=== PATIENT | female | born 1985 | race Hispanic/Latino ===

== ENCOUNTER 2025-03-06 22:08 | Emergency (ER) | payer OTHER, SELFPAY ==
[2025-03-06 22:14] VITALS: BP 133/70; BMI 18.2
[2025-03-06 22:54] LABS: % Basophils 0.3 % (0-2); % Immature Granulocytes 0.4 % (0-0.5); % Lymphocytes 8.3 % (20.5-51.1); % Monocytes 2.7 % (1.7-9.3); % Neutrophils 88.3 % (42.2-75.2); Absolute Lymphocytes 0.6 10^3/uL (1.2-3.4); Absolute Monocytes 0.2 10^3/uL (0.1-0.6); Absolute Neutrophils 6.9 10^3/uL (1.4-6.5); Hematocrit 35.6 % (37.0-47.0); Hemoglobin 11.5 g/dL (12.0-16.0); Mean Corp Hgb Conc. 32.3 g/dL (33.0-37.0); Mean Corpuscular Hgb 24.2 pg (27.0-31.0); Mean Corpuscular Volume 74.8 fL (81.0-99.0); Mean Platelet Volume 9.9 fL (7.4-10.4); Nucleated Red Blood Cells % 0 %; Platelet Count 345 10^3/uL (130-400); Red Blood Cell Count 4.76 10^6/uL (4.20-5.40); Red Cell Dist. Width 15.5 % (11.5-14.5); White Blood Cell Count 7.8 10^3/uL (4.8-10.8)
[2025-03-06 23:00] VITALS: BP 131/82
[2025-03-06 23:15] LABS: ALT (SGPT) 16 U/L (0-35); AST (SGOT) 32 U/L (14-36); Albumin 4.4 g/dl (3.5-5.0); Alkaline Phosphatase 84 U/L (38-126); Blood Urea Nitrogen 10 mg/dl (7-17); Carbon Dioxide 23 mmol/L (22-30); Chloride 107 mmol/L (98-107); Estimated Creatinine Clearance 104 ml/min; Glucose 124 mg/dl (70-99); Potassium 4.3 mmol/L (3.5-5.1); Sodium 142 mmol/L (135-145); Total Bilirubin 0.8 mg/dl (0.2-1.3); eGFR > 60.00
[2025-03-07] VITALS: BP 139/77
[2025-03-07 01:00] VITALS: BP 123/78
--- NOTE | 2025-03-07 01:02 | ED.GENMED ---
History of Present Illness
General
Chief Complaint: Vomiting Blood
Source: patient
Exam Limitations: none
Time Seen by Provider: 03/07/25 00:24
History of Present Illness
History of Present Illness:
pt is a 39 y/o F
from [facility]
booked at 10 am on 03/06
says she last used fentanyl at midnight on 03/06, uses 1.5 bundles daily as well as frequently uses cocaine
she snorts or ingests fentanyl, does not use IV
uses cocaine 'all day'
per the [facility] nursing staff, pt had uds + for cocaine, fentanyl and thc
she was vomiting at the [facility] and a few episodes may have had streaks of blood
pt did vomit for the ocean lifeg[employer] staff here who said it wa sa very small streak but otherwise yellowish looking
no abdominal pain
pt is c/o chest pain
she is yawning frequently, feels anxious, is shifty in the bed,
pt has no abdominal pain, urianry symptoms. fever
Past History
Past History
ED Past Medical History: Other (Sepsis)
ED Past Surgical History: Appendectomy
Social History
Drug: Marijuana, Cocaine and Narcotics
Personal: Single
Living: [facility]
Family History
Family History: Other
Review of Systems
Review of Systems
Allergies reviewed?: Yes
All Other Systems: Not applicable
Phy Exam
Physical Exam
Physical Exam:
GENERAL: sleeping, easily aroused, shifting around in the stretcher
EYE: pupils equal and reactive 3 mm, not pinpoint
NECK: Supple
ENT: o/p clr, mmm.
CARDIAC: Regular rate and rhythm . no appreciated murmur
LUNGS: Clear breath sounds bilaterally, no acute respiratory distress, no wheezes/rales/rhonchi
ABDOMEN: Soft, without focal tenderness, no r/g, no cvat, normal bowel sounds
NEUROLOGICAL: Alert and oriented, no focal neuro deficits
SKIN: Warm and dry, skin intact.
MUSCULOSKELETAL: No edema, well perfused. neg jose's sign
PSYCH: Normal and appropriate interaction.
Scores
COW Clinical Opiate Withdrawal Scale
Resting Pulse Rate: 80 or below
Sweating-over past 30min not from room temp or activity: No report of chills or flushing
Restlessness-observation during assessment: Frequent shifting or extraneous movements of legs/arms
Pupil Size: Pupils pinned or normal size for room light
Bone or Joint Aches: Not present
Runny Nose or Tearing-not accounted for by cold/allergies: Not present
GI Upset-over last 30min: Multiple episodes of diarrhea or vomiting
Tremor-observation of outstretched hands: No tremor
Yawning-observation during assessment: Yawning once or twice during assessment
Anxiety or Irritability: Patient reports increasing irritability or anxiousness
Gooseflesh Skin: Skin is smooth
Score: 10
Withdrawal Severity: Mild Withdrawal, consider starting Suboxone
Course
Orders/Labs/Results
Orders:
Orders
03/06/25 22:45
Complete Blood Count/With Diff Urgent
Comprehensive Metabolic Panel Urgent
HCG, Serum Qualitative Screen Urgent
Lipase Urgent
03/07/25 01:04
Add On- LAB Urgent
Tests Added?: hcg serum qualitative
Electrocardiogram (*1) Urgent
Reason for Study: Chest Pain
EKG- Treatment ONCE
0.9% Sodium Chloride 1000 ml [Nss] 1,000 ml IV BOLUS
Buprenorphine [Subutex] 4 mg SL NOW STA
03/07/25 01:05
Pantoprazole [Protonix IV] 40 mg IV NOW STA
03/07/25 01:06
Add On- LAB Urgent
Tests Added?: lipase
03/07/25 01:39
Sterile Water [Sterile Water For Injection] 10 ml .ROUTE .[facility]
03/07/25 02:41
Troponin I Urgent
03/07/25 03:45
Ondansetron Orally Disint [Zofran Odt (Orally Disintegrating)] 4 mg PO NOW STA
Abnormal Lab Results
03/06/25
22:45
Hgb 11.5 L g/dL
(12.0-16.0)
Hct 35.6 L %
(37.0-47.0)
MCV 74.8 L fL
(81.0-99.0)
MCH 24.2 L pg
(27.0-31.0)
MCHC 32.3 L g/dL
(33.0-37.0)
RDW 15.5 H %
(11.5-14.5)
Absolute Neuts (auto) 6.9 H 10^3/uL
(1.4-6.5)
Absolute Lymphs (auto) 0.6 L 10^3/uL
(1.2-3.4)
Neutrophils % 88.3 H %
(42.2-75.2)
Lymphocytes % 8.3 L %
(20.5-51.1)
Glucose 124 H mg/dl
(70-99)
03/06/25 22:45
03/06/25 22:45
Vital Signs
Initial and Last Documented VS:
Initial Vital Signs
Temp Pulse Resp BP Pulse Ox
36.5 C 68 14 133/70 98
03/06/25 22:14 03/06/25 22:14 03/06/25 22:14 03/06/25 22:14 03/06/25 22:14
Last Documented Vital Signs
Temp Pulse Resp BP Pulse Ox
36.5 C 69 18 135/79 100
03/06/25 22:14 03/07/25 03:45 03/06/25 23:45 03/07/25 03:01 03/07/25 00:00
MDM/Problems Addressed
Differential Diagnosis Includes:
withdrawal, christina stephens tear, GI bleeding, dehydration
MDM/Problems Addressed:
39-year-old female coming from [facility] after being incarcerated earlier this morning and now going through opiate withdrawal. Patient also uses cocaine daily. Her last use of fentanyl was probably about 12 or 13 hours ago she thinks. As they were
doing her intake I had ordered her medications patient started vomiting. I talked to the present staff who said that there was no documentation but that somebody noted verbally that she had some blood in the vomit and thus she was sent out here.
She has not had any witnessed episodes by us, she did have 1 witnessed episode by the guard that is with her now and said it was a small streak of blood and not voluminous
pt's COWS is 10
d/w ed attending
subutex given
controlled pt symptoms well
pt had complained of cp and in setting of cocaine abuse, i sent trop and ekg which were unremarkabe
her lungs clear, no murmu, no cough
pt received iv protonix and fluids, though doubt true signiicant GI bleed, normal BUN
wbc normal
on discharge given dose of zofran though pt says she feels better, to help her tolerate fluids
d/c to [facility]
*Critical Care Note
Total Time (30-74mins, 75-104mins- exclusive of procedures): Not Applicable
ED Attending Note
-
Portions of this chart may have been created with voice recognition software.� Occasional wrong word or��sound alike� substitutions may have occurred due to the inherent limitations of voice recognition software.
Discharge Plan
Departure
Patient Disposition: Detention
Date of Disposition: 03/07/25
Time of Disposition: 03:36
Discharge Problem:
Vomiting, Drug withdrawal
Instructions: Nausea and Vomiting, Adult (DC), Drug Withdrawal (DC)
Prescriptions:
No Action
ibuprofen 800 MG tablet
800 mg PO Q6HPRN PRN (Reason: PAIN OR TEMP>100.4 F) 0RF
sulfamethoxazole-trimethoprim 1 TABLET tablet
1 tab PO BID 0RF
Rx Instructions:
8 more days
docusate sodium 100 MG capsule
100 mg PO BID 0RF
oxycodone-acetaminophen 5 MG/325 MG tablet
2 tab PO Q4HPRN PRN (Reason: severe pain) Qty: 12 0RF
Referrals:
[facility] [Family Provider] -
Activity Restrictions/Additional Instructions:
THERE WAS NO SIGNFICNAT BLEEDING FOUND HERE
ROBERTO HAD UNREMARKABLE LABS
SHE WAS GIVNE PROTONIX AND SUBUTEX 4 MG
CONTINUE WITHDRAWAL PROTOCOL
SHE LIKELY HAD BLOOD IN HER VOMIT FROM WRETCHING
RETURN FOR ANY CONCERNS.
SHE IS MEDICALLY CLEARED FOR INCARCERATION
Interventions
Interventions:
*General Assessment Last Done: 03/07/25 00:15
*Neglect/Abuse Screening Last Done: 03/07/25 00:15
*ED- Fall Risk Assessment Last Done: 03/07/25 00:15
*ED COVID-19 Vaccine History Last Done: 03/07/25 00:15
*Nursing Disposition Last Done: 03/07/25 03:56
JI-Gafnci-Ogipvqchts Assessment Last Done: 03/06/25 22:24
ED- Cardiac Assessment Last Done: 03/06/25 22:24
ED- Pulmonary Assessment Last Done: 03/06/25 22:24
Discharge Date and Time
Discharge Date/Time: 03/07/25 04:01
Print Language: TURKMEN
[2025-03-07 01:39] LABS: HCG, Serum Qualitative Screen Negative
[2025-03-07] MEDS: NSS 1000 IV (01:41)
[2025-03-07] MEDS: SUBUTEX 4 MG SL (01:42)
[2025-03-07] MEDS: PROTONIX IV 40 MG IV (01:42)
[2025-03-07 01:57] LABS: Lipase 66 U/L (23-300)
[2025-03-07 02:00] VITALS: BP 125/66
[2025-03-07 03:01] VITALS: BP 135/79
[2025-03-07 03:34] LABS: Troponin I < 0.012 ng/ml
[2025-03-07] MEDS: ZOFRAN ODT (ORALLY DISINTEGRATING) 4 MG PO (03:47)
== END 2025-03-07 04:01 ==
LOC: EMR 22:08
PROVIDERS: Physician Assistant; Student in an Organized Health Care Education/Training Program; EMERGENCY PHYSICIAN Student in an Organized Health Care Education/Training Program
DX: K92.0 Hematemesis (principal); F19.239 Other psychoactive substance dependence with withdrawal, unspecified
CPT/HCPCS: 99283; 96374; 80053; 83690; 84484; 84703; 85025; 93005

== ENCOUNTER 2025-03-09 00:43 | Inpatient (IN) | payer OTHER, SELFPAY ==
[2025-03-08 20:57] VITALS: BMI 19.3
[2025-03-08 20:58] VITALS: BP 103/56
[2025-03-08 21:02] VITALS: BP 103/56
[2025-03-08 21:45] LABS: ALT (SGPT) 14 U/L (0-35); AST (SGOT) 23 U/L (14-36); Albumin 3.8 g/dl (3.5-5.0); Alkaline Phosphatase 86 U/L (38-126); Blood Urea Nitrogen 16 mg/dl (7-17); Calcium 8.9 mg/dl (8.4-10.2); Carbon Dioxide 26 mmol/L (22-30); Chloride 104 mmol/L (98-107); Estimated Creatinine Clearance 94 ml/min; Glucose 96 mg/dl (70-99); Potassium 3.6 mmol/L (3.5-5.1); Sodium 139 mmol/L (135-145); Total Bilirubin 0.4 mg/dl (0.2-1.3); Total Protein 6.5 g/dl (6.3-8.2); eGFR > 60.00
[2025-03-08] MEDS: ZOFRAN 4 MG IV (21:59)
[2025-03-08] MEDS: TORADOL 15 MG IV (21:59)
[2025-03-08 22:01] VITALS: BP 94/54
[2025-03-08 22:46] LABS: % Basophils 0.8 % (0-2); % Eosinophils 0.8 % (0-6); % Immature Granulocytes 0.5 % (0-0.5); % Lymphocytes 22.6 % (20.5-51.1); % Monocytes 7.4 % (1.7-9.3); % Neutrophils 67.9 % (42.2-75.2); Absolute Lymphocytes 0.8 10^3/uL (1.2-3.4); Absolute Monocytes 0.3 10^3/uL (0.1-0.6); Absolute Neutrophils 2.5 10^3/uL (1.4-6.5); Hematocrit 28.7 % (37.0-47.0); Hemoglobin 9.3 g/dL (12.0-16.0); Mean Corp Hgb Conc. 32.4 g/dL (33.0-37.0); Mean Corpuscular Hgb 24.6 pg (27.0-31.0); Mean Corpuscular Volume 75.9 fL (81.0-99.0); Mean Platelet Volume 9.8 fL (7.4-10.4); Nucleated Red Blood Cells % 0 %; Platelet Count 224 10^3/uL (130-400); Red Blood Cell Count 3.78 10^6/uL (4.20-5.40); Red Cell Dist. Width 15.8 % (11.5-14.5); White Blood Cell Count 3.7 10^3/uL (4.8-10.8)
[2025-03-08 23:00] VITALS: BP 102/63
[2025-03-08 23:12] LABS: Hematocrit 29.1 % (37.0-47.0); Hemoglobin 9.3 g/dL (12.0-16.0); Mean Corpuscular Hgb 24.7 pg (27.0-31.0); Mean Corpuscular Volume 77.4 fL (81.0-99.0); Mean Platelet Volume 10.1 fL (7.4-10.4); Platelet Count 217 10^3/uL (130-400); Red Blood Cell Count 3.76 10^6/uL (4.20-5.40); Red Cell Dist. Width 15.7 % (11.5-14.5)
--- NOTE | 2025-03-08 23:27 | ED.GENMED ---
History of Present Illness
General
Chief Complaint: Withdrawal Symptoms
Time Seen by Provider: 03/08/25 21:32
History of Present Illness
History of Present Illness:
39-year-old female presents for [facility] with detention guards for evaluation of polysubstance withdrawal. She was seen here nearly 48 hours ago for similar symptoms. She last used fentanyl at midnight on March 06, states she
uses 1-1/2 bundles daily as well as frequent cocaine use. Denies IV drug abuse. She was brought in initially due to frequent vomiting and hematemesis. Was treated in the ED 2 days ago for the symptoms, at that time labs were reassuring and she
was given PPIs. She returns today with continued hematemesis, states she has vomited at least 10 times with blood, also complaining of chest pain at this point. Denies alcohol use or known history of esophageal varices
Past History
Past History
ED Past Medical History: Other (Sepsis)
ED Past Surgical History: Appendectomy
Social History
Drug: Marijuana, Cocaine and Narcotics
Personal: Single
Living: detention
Family History
Family History: Other
Review of Systems
Review of Systems
Allergies reviewed?: Yes
All Other Systems: ROS reviewed and negative except as documented in HPI and ROS
Phy Exam
Physical Exam
Physical Exam:
GEN: Ill appearing, no acute distress, generally disheveled
HEENT: Oral mucosa moist, no scleral icterus, no palpable supraclavicular crepitus
Cardiac: Regular rate and rhythm, no murmurs
Lung: No respiratory distress, no tachypnea, lungs clear to auscultation
MSK: No gross deformity or injuries
Skin: Good color, no pallor or jaundice, no rashes
Neuro: AO x3, moves all extremities freely
Psych: Anxious and disheveled
Course
Orders/Labs/Results
Orders:
Orders
03/08/25 20:57
Electrocardiogram (*1) Urgent
Reason for Study: Fatigue / Weakness
EKG- Treatment ONCE
03/08/25 21:09
Comprehensive Metabolic Panel Urgent
03/08/25 21:45
Ketorolac [Toradol] 15 mg IV NOW STA
Ondansetron Injectable [Zofran] 4 mg IV NOW STA
03/08/25 21:46
CR Chest - 2 Views Urgent
Comment:
Reason For Exam: chest pain
03/08/25 22:08
Complete Blood Count/With Diff Urgent
03/08/25 23:00
Flush (0.9% Sodium Chloride) [Flush (Nss)] See Dose Instructions IV PER PROTOCOL
03/08/25 23:03
Complete Blood Count/No Diff Urgent
03/08/25 23:13
Pantoprazole [Protonix IV] 80 mg IV NOW STA
03/08/25 23:15
Pantoprazole 80 mg/100 ml Nss [Protonix] 80 mg in 100 ml IV Q10H
03/08/25 23:18
Buprenorphine [Subutex] 2 mg SL NOW STA
03/08/25 23:43
Type+Screen Urgent
Prothrombin Time Urgent
Abnormal Lab Results
03/08/25 03/08/25
22:08 23:03
WBC 3.7 L 10^3/uL 4.0 L 10^3/uL
(4.8-10.8) (4.8-10.8)
RBC 3.78 L 10^6/uL 3.76 L 10^6/uL
(4.20-5.40) (4.20-5.40)
Hgb 9.3 L g/dL 9.3 L g/dL
(12.0-16.0) (12.0-16.0)
Hct 28.7 L % 29.1 L %
(37.0-47.0) (37.0-47.0)
MCV 75.9 L fL 77.4 L fL
(81.0-99.0) (81.0-99.0)
MCH 24.6 L pg 24.7 L pg
(27.0-31.0) (27.0-31.0)
MCHC 32.4 L g/dL 32.0 L g/dL
(33.0-37.0) (33.0-37.0)
RDW 15.8 H % 15.7 H %
(11.5-14.5) (11.5-14.5)
Absolute Lymphs (auto) 0.8 L 10^3/uL
(1.2-3.4)
03/08/25 23:03
03/08/25 21:09
Vital Signs
Initial and Last Documented VS:
Initial Vital Signs
Temp Pulse Resp BP Pulse Ox
98.2 F 72 19 103/56 99
03/08/25 20:58 03/08/25 20:58 03/08/25 20:58 03/08/25 20:58 03/08/25 20:58
Last Documented Vital Signs
Temp Pulse Resp BP Pulse Ox
98.2 F 66 14 94/54 99
03/08/25 20:58 03/08/25 22:45 03/08/25 22:45 03/08/25 22:01 03/08/25 22:45
MDM/Problems Addressed
MDM/Problems Addressed:
39-year-old female presents with continued hematemesis and drug withdrawal symptoms. Most concerning that she has continued chest pain which is concerning for esophageal injury or Anne-Lima tear, there is no subcutaneous air seen on chest x-ray
to suggest an esophageal perforation, thus this may represent severe gastritis versus Anne-Lima tear. Given that her hemoglobin has dropped 2.5 g in 48 hours we will admit on a PPI drip for GI consultation and further management
*Critical Care Note
Total Time (30-74mins, 75-104mins- exclusive of procedures): Not Applicable
ED Attending Note
-
Portions of this chart may have been created with voice recognition software.� Occasional wrong word or��sound alike� substitutions may have occurred due to the inherent limitations of voice recognition software.
Discharge Plan
Departure
Patient Disposition: Admit
Date of Disposition: 03/08/25
Time of Disposition: 23:32
Admit to: Med/Surg
Presentation/result/management discussed w/ accepting MD/DO: Hospitalist
Discharge Problem:
Acute upper GI bleed, Multiple substance withdrawal
Prescriptions:
No Action
clonidine HCl 0.1 mg Tablet
0.1 mg PO BID
clonazepam 0.5 mg Tablet
0.5 mg PO HS
pantoprazole 20 mg Tablet,Delayed Release (Dr/Ec)
20 mg PO DAILY
buprenorphine HCl 2 mg Tablet, Sublingual
4 mg SUBLINGUAL DAILY
Referrals:
[facility] [Family Provider] -
Interventions
Interventions:
*Risk Screen - Suicide Last Done: 03/08/25 20:58
*General Assessment Last Done: 03/08/25 20:58
*Neglect/Abuse Screening Last Done: 03/08/25 20:58
*ED- Fall Risk Assessment Last Done: 03/08/25 20:58
ED- Neurological Assessment Last Done: 03/08/25 21:07
ED-Psychological Assessment Last Done: 03/08/25 21:07
Discharge Date and Time
Print Language: SPANISH
[2025-03-08] MEDS: PROTONIX IV 80 MG IV (23:28)
[2025-03-08] MEDS: SUBUTEX 2 MG SL (23:29)
[2025-03-08] MEDS: PROTONIX 100 IV (23:29)
[2025-03-09] VITALS (30 sets, daily range): BP systolic 96–128; BP diastolic 54–77; BMI 19.3; BMI 18.9
[2025-03-09 00:09] LABS: INR 1.02; PT 13.7 Sec (11.4-14.6)
--- NOTE | 2025-03-09 00:33 | HPS.HSE ---
Family Physician
-
Family Physician: Facility [facility]
Chief Complaint
-
N/V, Hematemesis
History of Present Illness
Patient is a 39y F with PMH significant for polysubstance abuse and congenital pyloric stenosis and cardiomyopathy who presents to ED complaining of opioid withdrawal symptoms. Patient reports regular use of fentanyl and cocaine - both inhaled -
last used was 03/06 in the evening. Patient was incarcerated at that time and has since been having symptoms of chills, shakes, nausea, vomiting, abdominal pain, etc. She was seen in the ED here early in the AM on 03/07 with similar symptoms.
Evaluation at that time was unremarkable and she was discharged to detention on withdrawal protocols. Patient reports continued N/V since that time. Hematemesis has increased - initially blood streaked emesis and now samir bloody emesis per patient.
She denies any prior h/o GI bleeding. No anticoagulants / antiplatelets.
In the ED her BP is on the lower side. Hgb is decreased 2g from prior visit here.
Medical History
Past Medical History
Past Medical History: Reports Other
Additional Past Medical History:
Polysubstance Abuse
Congenital Cardiomyopathy
Congenital Pyloric Stenosis
Past Surgical History: Reports Other
Additional Past Surgical History:
Pyloric Stenosis Repair x 2
x 4
Appendectomy
Social History
Tobacco: Non-smoker
Alcohol: None
Drug: Other (Fentanyl 1 1/2 - 2 bundles daily - inhaled. Cocaine daily - inhaled. Last use 03/06 PM.)
Living: [facility]
Family History
Family History: Not pertinent
Allergies / Home Medications
Allergies reflects when Allergies were last updated in [facility].
Home Medications with original date entered in [facility]
Allergy/Medication List:
Allergies
Allergy/AdvReac Type Severity Reaction Status Date / Time
No Known Allergies Allergy Verified 03/08/25 20:58
Home Medications
buprenorphine HCl 2 mg sublingual tablet 4 mg sublingual DAILY 03/08/25
clonazepam 0.5 mg tablet 0.5 mg PO HS 03/08/25
clonidine HCl 0.1 mg tablet 0.1 mg PO BID 03/08/25
pantoprazole 20 mg tablet,delayed release 20 mg PO DAILY 03/08/25
Review of Systems
-
History Source: Patient
A 12 point ROS was completed and negative except as noted: Yes
Constitutional: Reports Fatigue and Chills; Denies Fever
EENT: Denies Sore Throat
Respiratory: Denies Cough or Trouble Breathing
Cardiac: Reports Diaphoresis and Palpitations; Denies Chest Pain or Syncope
Abdomen/GI: Reports Abdominal Pain, Nausea, Vomiting and Diarrhea
: Denies Dysuria or Frequency
Musculoskeletal: Denies Joint Pain or Edema
Neurological: Reports Headache; Denies Dizzy
Psych: Denies Depression or Anxiety
Physical Exam
Vital Signs
Vital Signs
Temp Pulse Resp BP Pulse Ox
98.2 F 66 14 94/54 99
03/08/25 20:58 03/08/25 22:45 03/08/25 22:45 03/08/25 22:01 03/08/25 22:45
Physical Exam
General: Other (Ill-appearing 39y F in mild - moderate distress due to nausea / pain.)
HEENT: Other (Dry MM. Poor dentition. Neck supple.)
Respiratory: Clear; No Wheezes, Rales or Rhonchi
Cardiac: S1/S2 and Regular Rhythm; No Murmur
GI: Other (Abdomen is soft. Mildly / diffusely tender. Pos BS.)
Musculoskeletal: No Clubbing, No Cyanosis and No Edema
Neuro: AO x 3
Laboratory Results
-
03/08/25 23:03
03/08/25 21:09
Laboratory Results
PT 13.7 Sec (11.4-14.6) 03/08/25 23:43
INR 1.02 03/08/25 23:43
Total Bilirubin 0.4 mg/dl (0.2-1.3) 03/08/25 21:09
AST 23 U/L (14-36) 03/08/25 21:09
ALT 14 U/L (0-35) 03/08/25 21:09
Alkaline Phosphatase 86 U/L (38-126) 03/08/25 21:09
Impression/Plan
-
A/P: Patient is a 39y F with PMH significant for polysubstance abuse who presents to ED complaining of N/V and hematemesis x 2 days.
UGIB
Acute Blood Loss Anemia secondary to the above
Hypotension secondary to the above
- Admit to ICU for further evaluation and treatment.
- Continue PPI infusion.
- Follow H&H and transfuse if needed for decreased Hgb or persistent hypotension.
- IVF support.
- GI evaluation for additional recommendations / probable endoscopic examination.
- Antiemetics / supportive care.
Opioid Withdrawal Syndromes
- Active withdrawals with ongoing N/V, etc.
- Continue / resume opioid withdrawal protocol including buprenorphine, antiemetics, clonidine, etc.
- Follow for clinical improvement.
Congenital Pyloric Stenosis
- s/p repair x 2 in infancy. No recent issues.
Congenital Cardiomyopathy
- Follow for any chest pain, dyspnea, etc.
DVT Prophylaxis: SCDs
Code Status: Full
[2025-03-09] MEDS: NSS 1000 IV (00:41)
[2025-03-09] MEDS: LR 1000 IV ×2 (02:21→14:43)
[2025-03-09 02:42] LABS: Hematocrit 28.6 % (37.0-47.0); Hemoglobin 9.2 g/dL (12.0-16.0)
[2025-03-09 03:22] LABS: Alcohol None Detected
--- NOTE | 2025-03-09 05:36 | EDRN ---
Called report to Pari in ICU
[2025-03-09 06:06] LABS: Glucose - Point of Care 71 mg/dl (70-99)
[2025-03-09 06:45] LABS: Hematocrit 28.8 % (37.0-47.0); Hemoglobin 9.1 g/dL (12.0-16.0); Mean Corp Hgb Conc. 31.6 g/dL (33.0-37.0); Mean Corpuscular Hgb 24.5 pg (27.0-31.0); Mean Corpuscular Volume 77.4 fL (81.0-99.0); Mean Platelet Volume 10.1 fL (7.4-10.4); Platelet Count 188 10^3/uL (130-400); Red Blood Cell Count 3.72 10^6/uL (4.20-5.40); Red Cell Dist. Width 15.9 % (11.5-14.5); White Blood Cell Count 2.6 10^3/uL (4.8-10.8)
[2025-03-09 06:52] LABS: ALT (SGPT) 12 U/L (0-35); AST (SGOT) 16 U/L (14-36); Albumin 3.1 g/dl (3.5-5.0); Alkaline Phosphatase 69 U/L (38-126); Blood Urea Nitrogen 15 mg/dl (7-17); Calcium 8.2 mg/dl (8.4-10.2); Carbon Dioxide 27 mmol/L (22-30); Chloride 108 mmol/L (98-107); Direct Bilirubin 0.2 mg/dl (0.0-0.4); Estimated Creatinine Clearance 81 ml/min; Glucose 80 mg/dl (70-99); Potassium 3.4 mmol/L (3.5-5.1); Sodium 140 mmol/L (135-145); Total Bilirubin 0.4 mg/dl (0.2-1.3); Total Protein 5.6 g/dl (6.3-8.2); eGFR > 60.00
[2025-03-09 07:20] LABS: Amphetamines Negative (Negative); Barbiturates Negative (Negative); Benzodiazepines Positive (Negative); Buprenorphine Positive (Negative); Cocaine Positive (Negative); Marijuana Positive (Negative); Opiates Positive (Negative)
[2025-03-09 07:21] LABS: Methadone Negative (Negative); Methamphetamines Negative (Negative); Phencyclidine Negative (Negative); Tricyclic Antidepressants Negative (Negative)
--- NOTE | 2025-03-09 07:30 | PTCARENOTE ---
Pt rec'd from night at RN 07:15. Pt remains restless/anxious and again asking for food and drinks, reminded pt she needs to await GI MD assessment/recs. COWs assessment initially 15. Per Protocol, Subutex administered for withdrawal sx (pt is in
active w/d, last used evening of 03/06) see documentation. Post administration, pt reported relief of sx, COWs score 4. VSS with SR 60s on monitor, SpO2 100% on RA. Currently on Protonix drip and LR at 125ml/hr. Plan of care discussed. Medications and
assessment as per documented in worklist. 2 guards remain at bedside, pt is shackled with one leg to bed.
--- NOTE | 2025-03-09 07:34 | PTCARENOTE ---
Pt arrived to ICU room 3370 from ER at approx 0555, accompanied by 2 guards from [facility]. Pt is A/O x4, tearful and somewhat restless/anxious but cooperative with care. No c/o nausea. SR 60s on monitor. SpO2 100% on RA. Currently on Protonix drip and
LR at 125ml/hr. Physical assessment as documented in nursing shift assessment flowsheet. Admission database completed. Pt able to ambulate with standby assistance to bathroom (once unshackled from bed) and voided. AM labs, MRSA swab and urine sample
obtained/sent to lab. Pt repeatedly asking for food or drink, discussed plan of care with patient and that the GI provider would need to see her first and clear her for a diet before we can give her any food. Pt reluctantly verbalized understanding.
Call khan within reach, guards in room.
[2025-03-09 07:35] LABS: Fentanyl, Urine Positive (Negative)
[2025-03-09] MEDS: SUBUTEX 8 MG SL ×2 (07:35→12:09)
--- NOTE | 2025-03-09 07:35 | CON.GI ---
Consultation
-
Date/Time Consultation Requested: 03/09/2025
Date/Time Consultation Performed: 03/09/2025
Requesting Provider: Hospitalist
Performing Provider: Dr. Jason
Reason for Consultation: Hematemesis
Medical History
Chief Complaint / HPI
Chief Complaint: Hematemesis
History of Present Illness:
Meche is a 39-year-old female with significant polysubstance abuse with history of pyloric stenosis repair x 2 who presented to the emergency room with opiate withdrawal symptoms. Regular use of fentanyl and cocaine last used 5 1 in the evening.
Patient has been incarcerated and is now having withdrawal with chills shakes nausea vomiting abdominal pain. Was in the emergency room on 03/07/2025 with similar symptoms and was discharged with withdrawal protocols. She has had continued nausea
vomiting and now with initially blood-streaked emesis now samir bloody emesis. No prior GI bleeding. No anticoagulation or antiplatelets. She had a 2 g drop from her previous visit. In the emergency room her total bilirubin is 0.4, INR 1, ALT
14, hemoglobin this morning 9.1 and on admission 9.3 last night. On 06 March hemoglobin 11.5, platelets 188.
Patient was sent to the ICU. Her blood pressure 96/57, pulse of 61.
Patient's last episode of hematemesis was in intermediate nothing here in the emergency room or on the floor. She is hemodynamically stable. She is asking for food and is very hungry. She denies any nausea. Her last bowel movement she cannot remember.
Patient denies any history of GI bleed and has never had an endoscopy.
Past Medical History
Past Medical History: Other (Congenital pyloric stenosis status post repair x 2, some cardiomyopathy as listed but unclear, polysubstance abuse)
Past Surgical History: Appendectomy and
Social History
Tobacco: Non-Smoker
Alcohol: None
Drug: Cocaine and Other (Inhales fentanyl and cocaine last used on 03/06/2025)
Living: [facility]
Family History
Family History: Reviewed & Not Pertinent
Allergies / Home Medications
Allergy/AdvReac Type Severity Reaction Status Date / Time
No Known Allergies Allergy Verified 03/08/25 20:58
�Medication �Instructions �Recorded
buprenorphine HCl 2 mg sublingual 4 mg sublingual DAILY 03/08/25
tablet
clonazepam 0.5 mg tablet 0.5 mg PO HS 03/08/25
clonidine HCl 0.1 mg tablet 0.1 mg PO BID 03/08/25
pantoprazole 20 mg tablet,delayed 20 mg PO DAILY 03/08/25
release
Review of Systems
-
History Source: Patient
All other systems: A 12 pt ROS was Negative except as stated above in HPI
Vital Signs
Temp Pulse Resp BP Pulse Ox
98.8 F 61 11 96/57 100
03/09/25 07:21 03/09/25 07:00 03/09/25 07:00 03/09/25 07:00 03/09/25 07:00
Physical Exam
Exam
General: Other (Somewhat tearful but in no acute distress)
HEENT: Anicteric
Respiratory: Clear
Cardiac: S1/S2
GI: Soft, Non Distended and Tender (Mild, diffusely tender but soft)
Neuro: AO x 3
Results
WBC 2.6 10^3/uL (4.8-10.8) L 03/09/25 06:25
Hgb Cancelled 03/09/25 19:58
Hct Cancelled 03/09/25 19:58
MCV 77.4 fL (81.0-99.0) L 03/09/25 06:25
Plt Count 188 10^3/uL (130-400) 03/09/25 06:25
Absolute Neuts (auto) 2.5 10^3/uL (1.4-6.5) 03/08/25 22:08
PT 13.7 Sec (11.4-14.6) 03/08/25 23:43
INR 1.02 03/08/25 23:43
Sodium 140 mmol/L (135-145) 03/09/25 06:25
Potassium 3.4 mmol/L (3.5-5.1) L 03/09/25 06:25
Chloride 108 mmol/L (98-107) H 03/09/25 06:25
Carbon Dioxide 27 mmol/L (22-30) 03/09/25 06:25
BUN 15 mg/dl (7-17) 03/09/25 06:25
Creatinine 0.8 mg/dL (0.6-1.0) 03/09/25 06:25
Calcium 8.2 mg/dl (8.4-10.2) L 03/09/25 06:25
Total Bilirubin 0.4 mg/dl (0.2-1.3) 03/09/25 06:25
AST 16 U/L (14-36) 03/09/25 06:25
ALT 12 U/L (0-35) 03/09/25 06:25
Alkaline Phosphatase 69 U/L (38-126) 03/09/25 06:25
Diagnostic Image Results:
Chest x-ray shows no acute cardiopulmonary process on 03/08/2025
Prior GI Procedures: None
EGD:
Colonoscopy:
Assessment / Plan
-
Meche is a 39-year-old female with unfortunate active polysubstance abuse who has had withdrawal in the past who last used inhaled fentanyl and cocaine on 03/06/2025 now withdrawing in intermediate here with persistent nausea vomiting initially vomiting
streaks of blood then turned samir with a 2 g drop in hemoglobin from 2 days ago
# Samir hematemesis after withdrawal from polysubstance abuse
-- Patient had significant nausea retching vomiting that then turned bloody -highly likely Anne-Lima tear
-- Hemoglobins been stable since admission, vital signs are stable with no further nausea vomiting and no bowel movements
-- Okay for clear liquids, antiemetics
-- needs bowel regimen with likely opiate induced constipation - suppository and miralax
-- if no further bleeding by this afternoon ok to advance diet
- continue ppi gtt for now, then eventual BID x 1 month, then once daily
-- will hold off on EGD since likely stopped and highly likely anne lima
Data Reviewed
-
Radiology: Report Reviewed by me
Old Records: Reviewed
-
-
Thank you for consultation and allowing me to participate in the patient's care. Please call the control room supervisor GI physician during the after hours with any questions or concerns.
[2025-03-09] MEDS: TYLENOL 1000 MG PO ×2 (07:36→15:10)
[2025-03-09] MEDS: PROTONIX 100 IV ×2 (07:41→14:43)
--- NOTE | 2025-03-09 07:46 | W.PN.HOSP.TC ---
Today's Communication/Plan
-
Continue NPO until seen by GI.
Assessment / Plan
Assessment / Plan
Patient is a 39y F with PMH significant for polysubstance abuse who presents to ED complaining of N/V and hematemesis x 2 days.
BP 96/57
WBC 2.6
H/H 9.1/28.8
K 3.4
1. UGIB, with Acute Blood Loss Anemia secondary to the UGIB
complicated by Hypotension secondary
- keep to ICU for further evaluation and treatment.
- Continue PPI infusion.
- Follow H&H and transfuse if needed for decreased Hgb or persistent hypotension.
Keep H/H above 7/21
- IVF support.
Keep MAP above 65, current BP 96/57
- GI evaluation for additional recommendations / probable endoscopic examination.
- Antiemetics / supportive care.
2. Low WBC - unclear cause
Could be atypical stress reaction, but could also be from infectious source
- HIV screen
3. Borderline low K - 3.4
Likely from poor po intake
Replete today IV
Check daily until stabilized
4. Opioid Withdrawal Syndromes
Active withdrawals with ongoing N/V, etc.
- Continue / resume opioid withdrawal protocol including buprenorphine, antiemetics, clonidine, etc.
- Follow for clinical improvement.
5. Congenital Pyloric Stenosis
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
No recent issues.
6. Congenital Cardiomyopathy
Stable at this time
- Follow for any chest pain, dyspnea, etc.
DVT Prophylaxis: SCDs
Code Status: Full
Anticipated Discharge: > 48 hours
Subjective/Interval History
-
Date of Service: March 09, 2025
Complaints of hunger and thirst.
Objective Data
-
Labs:
Laboratory Results
03/08/25 03/08/25 03/08/25
21:09 22:08 23:03
WBC 3.7 L 4.0 L
Hgb 9.3 L 9.3 L
Hct 28.7 L 29.1 L
Plt Count 224 D 217
PT
INR
Sodium 139
Potassium 3.6
Chloride 104
Carbon Dioxide 26
BUN 16
Creatinine 0.7
Glucose 96
Calcium 8.9
Total Bilirubin 0.4
AST 23
ALT 14
Alkaline Phosphatase 86
03/08/25 03/09/25 03/09/25
23:43 02:36 06:25
WBC 2.6 L
Hgb 9.2 L 9.1 L
Hct 28.6 L 28.8 L
Plt Count 188
PT 13.7
INR 1.02
Sodium 140
Potassium 3.4 L
Chloride 108 H
Carbon Dioxide 27
BUN 15
Creatinine 0.8
Glucose 80
Calcium 8.2 L
Total Bilirubin 0.4
AST 16
ALT 12
Alkaline Phosphatase 69
03/09/25 03/09/25 03/09/25
07:58 12:00 13:58
WBC
Hgb Cancelled Pending Cancelled
Hct Cancelled Pending Cancelled
Plt Count
PT
INR
Sodium
Potassium
Chloride
Carbon Dioxide
BUN
Creatinine
Glucose
Calcium
Total Bilirubin
AST
ALT
Alkaline Phosphatase
03/09/25 03/09/25
18:00 19:58
WBC
Hgb Pending Cancelled
Hct Pending Cancelled
Plt Count
PT
INR
Sodium
Potassium
Chloride
Carbon Dioxide
BUN
Creatinine
Glucose
Calcium
Total Bilirubin
AST
ALT
Alkaline Phosphatase
Vital Signs:
Vital Signs
Temp Pulse Resp BP Pulse Ox
98.8 F 61 11 96/57 100
03/09/25 07:21 03/09/25 07:00 03/09/25 07:00 03/09/25 07:00 03/09/25 07:00
I&O
03/08/25 03/09/25 03/10/25
06:59 06:59 06:59
Intake Total 135 / 135
Output Total 400 / 400
Balance -400 / -265 135 / 135
Review of Systems
-
History Source: Patient
Abdomen/GI: Reports Other (hunger)
Physical Exam
-
Psych: Anxious
Data Reviewed
-
Labs: Labs Reviewed by me
--- NOTE | 2025-03-09 08:12 | CON.INTV ---
Addendum entered and electronically signed by Dean Virgen MD 03/09/25 17:19:
Update: Patient continues to do well. No GI symptoms at all today she remains stable. Will downgrade to telemetry. No additional recommendations at this time. Elevator Pilot/Pulmonary service will now sign off. Thank you for allowing us to be
involved in the care of this patient. Please reconsult if there are any additional questions/concerns, or if patient's respiratory status deteriorates.
Original Note:
Consultation
Consultation Request
Date/Time Consultation Requested: 03/09/2025157
Date/Time Consultation Performed: 03/09/2025807
Requesting Provider: Dr. Dempsey
Performing Provider: Dr. Virgen
Reason for Consultation: UGIB/Opiate withdrawal
Medical History
-
Chief Complaint: Nausea/vomiting + hematemesis
History of Present Illness:
39-year-old female non-smoker with a past medical history of polysubstance abuse, congenital pyloric stenosis and congenital cardiomyopathy who presented from residential with opiate withdrawal symptoms. Patient reports regular use of fentanyl and
cocaine via insufflation � last use in the evening of 03/06. She been having chills, shakes, nausea, vomiting and abdominal pain. She was here in the ER on the morning of 03/07 with similar symptoms, was discharged back to residential on withdrawal
protocols. Patient's nausea/vomiting persisted and she was vomiting blood. Since being here in the hospital currently, she has not had another episode of hematemesis. In the ER she was afebrile to 98.2 �F, pulse rate 72, respiratory rate 19, BP
103/56 and saturating 99% on room air. Labs pertinent for WBC 4, Hb 9.3, INR 1.02, alcohol level negative, and UDS positive for buprenorphine, fentanyl, opiates, benzodiazepines, cocaine and marijuana. CXR showed no acute cardiopulmonary process.
In the ER, she was given Subutex, Toradol, NS 0.9% x1 L, Zofran, and started on Protonix drip. She was admitted to the ICU for further care and window glass installer services consulted for additional management/recommendations.
When I saw the patient this morning, she appeared uncomfortable. Please officers x 2 at bedside. COWS score this morning was 15. BP 106 over 60s, heart rate 66 and she saturating 100% on room air. She endorses burning chest pain that she has had
for few days, starting when she started to detox from her fentanyl use. She currently denies SOB or blood seen in urine or stool.
PMHx: Polysubstance abuse, congenital cardiomyopathy, congenital pyloric stenosis
PSHx: Pyloric stenosis repair x 2, x 4, appendectomy
Past Medical History
Past Medical History: Other (Above as per HPI)
Past Surgical History: Other (Above as per HPI)
Social History
Tobacco: Non-smoker
Alcohol: None
Drug: Narcotics (Uses 1/2 - 2 bundles daily of fentanyl (insufflated), also uses cocaine daily -last use on 03/06)
Living: [facility]
Family History
Family History: Reviewed & Not Pertinent
Allergies / Home Medications
Allergies
Allergy/AdvReac Type Severity Reaction Status Date / Time
No Known Allergies Allergy Verified 03/08/25 20:58
Home Medications
�Medication �Instructions �Recorded �Confirmed �Last Taken �Type
buprenorphine HCl 2 mg sublingual 4 mg sublingual DAILY 03/08/25 03/08/25 Unknown History
tablet
clonazepam 0.5 mg tablet 0.5 mg PO HS 03/08/25 03/08/25 Unknown History
clonidine HCl 0.1 mg tablet 0.1 mg PO BID 03/08/25 03/08/25 Unknown History
pantoprazole 20 mg tablet,delayed 20 mg PO DAILY 03/08/25 03/08/25 Unknown History
release
Review of Systems
-
History Source: Patient
All other systems: Negative unless noted
Vitals / Labs / Diagnostic Testing
Vital Signs
Temp Pulse Resp BP Pulse Ox
98.8 F 61 11 96/57 100
03/09/25 07:21 03/09/25 07:00 03/09/25 07:00 03/09/25 07:00 03/09/25 07:00
Lab Data
03/09/25 19:58
03/09/25 06:25
Laboratory Results
03/08/25
23:43
PT 13.7
INR 1.02
Diagnostic Testing:
Physical Exam
-
HEENT: Normocephalic and Anicteric
Cardiovascular: S1/S2 and Peripheral Edema (negative)
Respiratory: Clear, Wheeze (negative), Rales (negative), Rhonchi (negative) and Accessory Resp Muscle Use (negative)
GI: Soft, Non Distended, Non Tender and Normal Bowel Sounds
Neurology: AO x 3 and Tremors (negative)
Skin: Warm and Dry
General: Respiratory Distress (negative), Fever (negative) and Other (Middle-age female, appears uncomfortable, in no acute distress)
Assessment
-
Assessment: 39-year-old female non-smoker with a past medical history of polysubstance abuse, congenital pyloric stenosis and congenital cardiomyopathy who presented from residential with opiate withdrawal symptoms. Patient reports regular use of
fentanyl and cocaine via insufflation � last use in the evening of 03/06. She been having chills, shakes, nausea, vomiting and abdominal pain. She was here in the ER on the morning of 03/07 with similar symptoms, was discharged back to residential on
withdrawal protocols. Patient's nausea/vomiting persisted and she was vomiting blood. Since being here in the hospital currently, she has not had another episode of hematemesis. In the ER she was afebrile to 98.2 �F, pulse rate 72, respiratory
rate 19, BP 103/56 and saturating 99% on room air. Labs pertinent for WBC 4, Hb 9.3, INR 1.02, alcohol level negative, and UDS positive for buprenorphine, fentanyl, opiates, benzodiazepines, cocaine and marijuana. CXR showed no acute
cardiopulmonary process. In the ER, she was given Subutex, Toradol, NS 0.9% x1 L, Zofran, and started on Protonix drip. She was admitted to the ICU for further care and window glass installer services consulted for additional management/recommendations.
Chronic conditions PACKAGING LINE ATTENDANT: Polysubstance abuse, congenital cardiomyopathy, congenital pyloric stenosis
Impression:
#Hematemesis likely due to Anne-Lima tear in the setting of nausea/vomiting
#Acute blood loss anemia due to above
#Hypotension
#Leukopenia
#Acute on chronic anemia (baseline Hb 11�11.5)
#Opioid withdrawal syndrome
#Congenital cardiomyopathy
#Congenital pyloric stenosis
Plan:
- Patient presented with opiate withdrawal symptoms and nausea/vomiting with hematemesis, likely due to a Anne-Lima tear
- No further episodes of UGIB seen since she arrived to the hospital
- Continue serial H&H and transfuse if needed to keep Hb>7g/dL; keep plt>50k
- Continue holding antiplatelets/anticoagulants for now
- Large bore IV x 1�2
- GI consulted - recs appreciated; defer diet to GI
- Antiemetics prn with bowel regimen to treat opioid induced constipation
- PPI gtt with eventual transition to intermittent dosing, per GI
- Continue with COWS
- Her UDS was positive for multiple substances including cocaine, marijuana, benzodiazepines (although is prescribed Klonopin), fentanyl, buprenorphine (prescribed Subutex) and opiates
- Continue with Subutex protocol in addition to prn Subutex, clonidine, tizanidine, Zofran and Compazine
- If she develops significant hypertension +/- tachycardia then may need to be started on Precedex drip given the withdrawal of xylazine + medetomidine
- Maintain MAP>65
- Continue with IVF with LR at 125 cc/hr
- Although WBC is low, she is nontoxic-appearing and afebrile
- Continue to monitor off antibiotics
- Trend WBC and monitor fever curve
- Replete electrolytes with K>4, Mg>2
- Maintain euglycemia with goal BG 140-180
- Maintain SpO2 >90-94% (currently on room air breathing comfortably)
- prn nebulized bronchodilators - not currently bronchospastic
- Incentive spirometer encouraged 10x per hour for at least 4 hrs a day
- DVT ppx: SCDs for now
If patient is stable and does not need Precedex drip by later this evening, will downgrade to IMU level of care. Once she is transferred to IMU, then Elevator Pilot/Pulmonary services will sign off.
Total time spent today was 78 minutes for this encounter. Time includes reviewing laboratory test/imaging results, reviewing pertinent medical records, obtaining and reviewing medical history, performing an appropriate exam, ordering medications,
tests and procedures. Time also includes documentation of this encounter, coordinating patient care and communicating with other healthcare professionals. Total time does not include separately billed tests performed on this date of service.
--- NOTE | 2025-03-09 10:15 | CM ---
Received consult for opioid withdraw risk. Will communicate with [facility] to update about patient's plan of care .
[2025-03-09] MEDS: DULCOLAX 10 MG RECTAL (10:23)
[2025-03-09] MEDS: MIRALAX 17 GRAMS PO (10:24)
[2025-03-09] MEDS: KCL 260 MEQ IV (10:25)
[2025-03-09] MEDS: ZANAFLEX 2 MG PO ×2 (11:22→17:43)
--- NOTE | 2025-03-09 12:00 | PTCARENOTE ---
Pt tolerating clear liquids, no nausea, vomiting, or abd pain. She is again anxious and tearful, COWs assessment performed Q4 per protocol. 12:00 score 16...medicated pt with Subutex dose 2 of 2. Pt informed that she will not recieve futher doses of
subutex today but there are other PRN medications available to treat withdrawal -related sx. Pt verbalized concern about withdrawing from subutex, so education was provided regarding tapering method of medication administration in controlled setting
of hospital. Pt verbalized understanding. Pt with no BM for many days due to opiod induced constipation, Dulcolax supp and Miralax administered per orders from Dr. Jason. Pt is cleared by Dr. Lux to ambulate to and from bathroom with standby
assistance. Pt voiding appropriately. Oral care and juan pablo care done independently in bathroom. Pt anxious to eat solid food, Dr. Jason advanced diet to low residue. Pt with voracious appetite, no GI symptoms. Plan discussed with care team. Possibly
downgrade later today. H+H drawn and sent, result 9.1 noted.
[2025-03-09 13:02] LABS: Hematocrit 28.9 % (37.0-47.0)
--- NOTE | 2025-03-09 17:29 | PTCARENOTE ---
Pt stable for downgrade to telemetry per [employer], will request 2N bed to accomodate guards.
[2025-03-09 18:25] LABS: Hematocrit 32.1 % (37.0-47.0)
[2025-03-09] MEDS: AMBIEN 5 MG PO (21:04)
--- NOTE | 2025-03-09 21:19 | PTCARENOTE ---
Received pt from previous shift. Pt is AAOx3, anxious, very tearful at times, emotional support provided. COWs protocol (see worklist). Pt on RA, lungs diminished. NSR on the monitor. Pt assisted to the BR x1, pt states she was dizzy, pt assisted
back to bed. PRN Ambien given (see MAR). CHG bath provided. SCDs in place. Two guards at bedside. Call khan in reach. Safe environment maintained.
[2025-03-10] VITALS (8 sets, daily range): BP systolic 115–146; BP diastolic 74–86
[2025-03-10] MEDS: TYLENOL 1000 MG PO ×3 (00:06→17:09)
[2025-03-10] MEDS: LR 1000 IV ×2 (00:06→09:05)
[2025-03-10] MEDS: ZANAFLEX 2 MG PO ×2 (00:06→17:09)
[2025-03-10 00:37] LABS: Hematocrit 30.2 % (37.0-47.0); Hemoglobin 9.6 g/dL (12.0-16.0)
--- NOTE | 2025-03-10 00:48 | PTCARENOTE ---
Pt transferred to 4W in a wheelchair, with two guards.
--- NOTE | 2025-03-10 01:05 | PTCARENOTE ---
pt transferred to [facility]. Pt able to stand and walk to bed. pt connected to LR fluids and protonix gtt. No c/o pain at time of transfer, tele pack placed. Pt appears comfortable in bed and able to make needs known, call khan within reach.
[2025-03-10] MEDS: PROTONIX 100 IV (02:31)
[2025-03-10] MEDS: ZOFRAN 4 MG IV (04:11)
[2025-03-10] MEDS: COMPAZINE 5 MG IV (05:21)
[2025-03-10 07:57] LABS: APTT 31.2 Sec (23.4-35.0)
[2025-03-10 08:00] LABS: Hematocrit 30.7 % (37.0-47.0); Hemoglobin 9.7 g/dL (12.0-16.0); Mean Corp Hgb Conc. 31.6 g/dL (33.0-37.0); Mean Corpuscular Hgb 24.3 pg (27.0-31.0); Mean Corpuscular Volume 76.8 fL (81.0-99.0); Mean Platelet Volume 10.6 fL (7.4-10.4); Platelet Count 208 10^3/uL (130-400); Red Cell Dist. Width 15.5 % (11.5-14.5); White Blood Cell Count 3.1 10^3/uL (4.8-10.8)
--- NOTE | 2025-03-10 08:07 | W.PN.HOSP.TC ---
Addendum entered and electronically signed by Ant Mcdaniel MD 03/10/25 15:57:
I saw and evaluated the patient. I reviewed the resident�s note and agree with findings and plan as documented in the resident�s note except for changes in my documentation
39-year-old female presented from the half-way with opiate withdrawal. She reports using fentanyl and cocaine last use was 03/06/2025. She was in the ER on 03 07 with symptoms symptoms and was discharged back to half-way on withdrawal protocol. She had a
lot of nausea and vomiting and vomited blood.
CVS: S1-S2 normal
Chest: CTA B/L
Abdomen: Soft, NT / Bowel sounds present
Extremities: No edema, normal pulses
TECHNOLOGY INTERN: Non focal exam
# Hematemesis
Acute blood loss anemia secondary to above
Possible Anne-Lima tear
Continue PPI twice daily for 1 month and then daily
GI consulted for possible endoscopic evaluation-deferring EGD at this time
Continue antiemetics
Diet advanced
# Opiate abuse with withdrawal symptoms
Urine drug screen was positive for opiates, fentanyl, cocaine, marijuana, benzo, buprenorphine (patient was prescribed buprenorphine and benzos)
Continue opiate withdrawal protocol SCORE COWS score.
Continue as needed Zanaflex, clonidine, Subutex
# Iron deficiency anemia-replace IV iron
# Hypokalemia-resolved
# Congenital pyloric stenosis with history of repair as an
# Mental health cifwhegm-maschin-aamxpnvp Klonopin
# Congenital cardiomyopathy
# DVT prophylaxis-SCDs
# Full code
D/W RN
Part of this note was created using voice recognition system. Occasional wrong word or��sound alike� substitutions may have inadvertently occurred due to the inherent limitations of voice recognition software. If noted kindly bring it to my
attention for correction.
Hold discharge today
Original Note:
Today's Communication/Plan
-
- stop IVF
- change PPI to PO
- d/c
Assessment / Plan
Assessment / Plan
Assessment:
39yo F pmh polysubstance use w hx pyloric stenosis repair x2, congenital cardiomyopathy who presented to [facility] ED w opiate withdrawal sx. Was brought in a couple days prior for similar sx. Last used fentanyl midnight on March 06, uses 1.5 bundles daily.
Returned for continued hematemesis and CP.
Plan:
Upper GI bleed
Acute blood loss anemia secondary to upper GI bleed
- was in the ICU for HoTN
- follow H&H
- transfuse as needed
- tolerating diet well
- IVF support stopped
- PPI BID transitioned to PO
- GI input appreciated
- f/u outpt GI for possible endoscopy
Leukopenia
- unclear etiology
- HIV screen
Opioid w/d syndrome
- active w/d is slowing down
- opioid w/d protocol
- on 16mg subutex today
Hypokalemia
- repleted
Hypomagnesemia
- repleted
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
- no recent issues
Congential cardiomyopathy
- stable at this time
DVT Prophylaxis: SCDs
Diet: low residue
Code Status: Full code
Anticipated Discharge: Today
Subjective/Interval History
-
Date of Service: March 10, 2025
Overnight, pt downgraded to telemetry. COWS score 5. On subutex 16mg sublingual. Nauseous overnight. Ate marshallese toast for breakfast, tolerating well.
Objective Data
-
Labs:
Laboratory Results
03/10/25 03/10/25
00:12 07:27
WBC 3.1 L
Hgb 9.6 L 9.7 L
Hct 30.2 L 30.7 L
Plt Count 208
APTT 31.2
Sodium Pending
Potassium Pending
Chloride Pending
Carbon Dioxide Pending
BUN Pending
Creatinine Pending
Glucose Pending
Calcium Pending
Vital Signs:
Vital Signs
Temp Pulse Resp BP Pulse Ox
97.4 F 71 20 124/80 100
03/10/25 03:00 03/10/25 03:00 03/10/25 03:00 03/10/25 03:00 03/10/25 03:00
I&O
03/09/25 03/10/25 03/11/25
06:59 06:59 06:59
Intake Total 6459 / 6459
Output Total 400 / 400
Balance -400 / -265 6459 / 6459
Review of Systems
-
History Source: Patient
Constitutional: Reports Chills
Respiratory: Reports No Symptoms
Cardiac: Reports No Symptoms
Abdomen/GI: Reports Abdominal Pain
Musculoskeletal: Reports No Symptoms
Skin: Reports No Symptoms
Neuro: Reports No Symptoms
Physical Exam
-
General: Well Developed, Well Nourished and No Apparent Distress
HEENT: Normocephalic, Atraumatic and Moist Mucous Membranes
Respiratory: Clear to Auscultation and Non Labored Respirations
Cardiac: Regular Rhythm and S1/S2
GI: Soft, Nondistended, Normal Bowel Sounds and Tender (epigastric)
Musculoskeletal: No Clubbing, No Cyanosis and No Edema
Skin: Warm and Dry
Neuro: Awake, Alert, Oriented, No Motor Deficits and Nonfocal/Grossly Intact
Psych: Calm
[2025-03-10 08:15] LABS: Blood Urea Nitrogen 9 mg/dl (7-17); Calcium 8.5 mg/dl (8.4-10.2); Carbon Dioxide 28 mmol/L (22-30); Chloride 107 mmol/L (98-107); Estimated Creatinine Clearance 92 ml/min; Glucose 86 mg/dl (70-99); Magnesium 1.8 mg/dl (1.6-2.3); Phosphorus 4.2 mg/dl (2.5-4.5); Potassium 4.1 mmol/L (3.5-5.1); Sodium 142 mmol/L (135-145); eGFR > 60.00
[2025-03-10] MEDS: MIRALAX 17 GRAMS PO (09:05)
[2025-03-10] MEDS: SUBUTEX 16 MG SL (09:06)
[2025-03-10] MEDS: MAGNESIUM OXIDE 500 MG PO (09:06)
--- NOTE | 2025-03-10 10:04 | CM ---
Chart reviewed and casey saw operator met with patient this am, patient will return to [facility] when stable, 2 guards at bedside.
Plan; Patient to return to [facility] when stable.
[facility]
[phone]
[2025-03-10 10:07] LABS: Iron 36 ug/dl (37-170)
[2025-03-10 10:16] LABS: Percent Saturation 11 % (20-50); Total Iron Binding Capacity 324 ug/dl (265-497)
[2025-03-10 10:56] LABS: Vitamin B12 557 pg/ml (239-931)
[2025-03-10] MEDS: PROTONIX 40 MG PO ×2 (13:52→21:05)
--- NOTE | 2025-03-10 14:55 | W.DCSUMMARY ---
Discharge Summary
Discharge Data
Date of Admission: 03/09/25
Date of Discharge: 03/10/25
-
Pending Results: Yes
Additional Pending Results:
HIV Ag/Ab
Hospital Course
Ms. Meche Huggins is a 39yo F [facility] polysubstance use w hx pyloric stenosis repair x2, congenital cardiomyopathy who presented to [facility] ED w opiate withdrawal sx. Was brought in a couple days prior for similar sx. Last used fentanyl midnight on March 06,
uses 1.5 bundles daily. Returned for continued hematemesis and CP. Continued microdosing protocol from previous admission. Electrolyte abnormalities repleted. Leukopenic, HIV status pending. Pt should f/u outpt w GI for possible endoscopy.
Discharge Plan
-
Patient Disposition: Shelter
Discharge Diagnosis/Procedures: Presumed Anne-Lima tear
Condition: Good
Diet: Low Residue
Activity: No restrictions
Driving Restrictions: As prior to admission
Bathing Restrictions: None
Instructions: GI bleed - Discharge instructions
Referrals:
[facility] [Family Provider] -
Prescriptions:
New
buprenorphine HCl 8 mg tablet, sublingual
16 mg sublingual DAILY 30 Days Qty: 60 0RF
pantoprazole 40 mg Tablet,Delayed Release (Dr/Ec)
40 mg PO BID 30 Days Qty: 60 0RF
Continued
clonidine HCl 0.1 mg Tablet
0.1 mg PO BID
clonazepam 0.5 mg Tablet
0.5 mg PO HS
Discontinued
pantoprazole 20 mg Tablet,Delayed Release (Dr/Ec)
20 mg PO DAILY
buprenorphine HCl 2 mg Tablet, Sublingual
4 mg SUBLINGUAL DAILY
Discharge Date and Time
Print Language: K[place]IL[place]
[2025-03-10] MEDS: FERRLECIT 110 MG IV (17:10)
[2025-03-10] MEDS: AMBIEN 5 MG PO (21:05)
[2025-03-11] MEDS: TYLENOL 1000 MG PO ×3 (00:25→17:22)
[2025-03-11] MEDS: ZANAFLEX 2 MG PO ×3 (00:29→21:25)
[2025-03-11 03:00] VITALS: BP 127/77
[2025-03-11] MEDS: ZOFRAN 4 MG IV (04:17)
[2025-03-11] MEDS: SUBUTEX 4 MG SL (06:16)
[2025-03-11 07:00] VITALS: BP 130/83
[2025-03-11] MEDS: MIRALAX 17 GRAMS PO (08:29)
[2025-03-11] MEDS: PROTONIX 40 MG PO ×2 (08:29→21:25)
--- NOTE | 2025-03-11 08:38 | W.PN.HOSP.TC ---
Addendum entered and electronically signed by Ant Mcdaniel MD 03/11/25 14:20:
I saw and evaluated the patient. I reviewed the resident�s note and agree with findings and plan as documented in the resident�s note.
Patient was seen earlier today. Was doing well. Did not have any withdrawal symptoms. Received 4 mg of Suboxone earlier today. Will start 20 mg from tomorrow 03/12/2025.
Patient reported constipation mag citrate ordered
Can be discharged back to skilled nursing once patient has a bowel movement.
D/W RN
D/W Pharmacy
Original Note:
Today's Communication/Plan
-
- dc planning
Assessment / Plan
Assessment / Plan
Assessment:
39yo F h polysubstance use w hx pyloric stenosis repair x2, congenital cardiomyopathy who presented to [facility] ED w opiate withdrawal sx. Was brought in a couple days prior for similar sx. Last used fentanyl midnight on March 06, uses 1.5 bundles daily.
Returned for continued hematemesis and CP.
Plan:
Upper GI bleed
Acute blood loss anemia secondary to upper GI bleed
- was in the ICU for HoTN
- follow H&H
- transfuse as needed
- tolerating diet well
- IVF support stopped
- PPI BID transitioned to PO
- GI input appreciated
- f/u outpt GI for possible endoscopy
Leukopenia
- unclear etiology
- HIV screen
Opioid w/d syndrome
- active w/d is slowing down
- opioid w/d protocol
- on 20mg suboxone today
Hypokalemia
- repleted
Hypomagnesemia
- repleted
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
- no recent issues
Congential cardiomyopathy
- stable at this time
Anxiety
- cont home klonopin
DVT Prophylaxis: SCDs
Diet: low residue
Code Status: Full code
Anticipated Discharge: Today
Subjective/Interval History
-
Date of Service: March 11, 2025
No acute overnight events
Objective Data
-
Labs:
Laboratory Results
03/11/25
08:36
WBC Pending
Hgb Pending
Hct Pending
Plt Count Pending
Sodium Pending
Potassium Pending
Chloride Pending
Carbon Dioxide Pending
BUN Pending
Creatinine Pending
Glucose Pending
Calcium Pending
Total Bilirubin Pending
AST Pending
ALT Pending
Alkaline Phosphatase Pending
Vital Signs:
Vital Signs
Temp Pulse Resp BP Pulse Ox
97.9 F 70 20 130/83 98
03/11/25 07:00 03/11/25 07:00 03/11/25 07:00 03/11/25 07:00 03/11/25 07:00
I&O
03/10/25 03/11/25 03/12/25
06:59 06:59 06:59
Intake Total 6459 / 6459 1310 / 1310
Balance 6459 / 6459 1310 / 1310
Review of Systems
-
History Source: Patient
Constitutional: Reports No Symptoms
EENT: Reports No Symptoms Reported
Respiratory: Reports No Symptoms
Cardiac: Reports No Symptoms
Abdomen/GI: Reports Abdominal Pain
Musculoskeletal: Reports No Symptoms
Skin: Reports No Symptoms
Neuro: Reports No Symptoms
Physical Exam
-
General: Well Developed, Well Nourished and No Apparent Distress
HEENT: Normocephalic, Atraumatic and Moist Mucous Membranes
Respiratory: Clear to Auscultation and Non Labored Respirations
Cardiac: Regular Rhythm and S1/S2
GI: Soft, Nondistended, Normal Bowel Sounds and Tender (epigastric)
Musculoskeletal: No Clubbing, No Cyanosis and No Edema
Skin: Warm and Dry
Neuro: Awake, Alert, Oriented, No Motor Deficits and Nonfocal/Grossly Intact
Psych: Calm
[2025-03-11] MEDS: CATAPRES 0.1 MG PO ×2 (08:49→17:22)
[2025-03-11] MEDS: SUBUTEX 16 MG SL (09:39)
[2025-03-11 10:06] LABS: Hematocrit 33.7 % (37.0-47.0); Hemoglobin 10.5 g/dL (12.0-16.0); Mean Corp Hgb Conc. 31.2 g/dL (33.0-37.0); Mean Corpuscular Hgb 24.2 pg (27.0-31.0); Mean Corpuscular Volume 77.8 fL (81.0-99.0); Mean Platelet Volume 10.4 fL (7.4-10.4); Platelet Count 219 10^3/uL (130-400); Red Blood Cell Count 4.33 10^6/uL (4.20-5.40); Red Cell Dist. Width 15.4 % (11.5-14.5); White Blood Cell Count 4.5 10^3/uL (4.8-10.8)
--- NOTE | 2025-03-11 10:10 | CM ---
retail office manager reviewed patient's chart and met with patient this am, 2 guards are at bedside and plan is for patient to return to [facility] when stable.
[facility]
[phone]

Plan; Patient to return to [facility] when stable.
[2025-03-11 10:23] LABS: ALT (SGPT) 12 U/L (0-35); AST (SGOT) 18 U/L (14-36); Albumin 3.9 g/dl (3.5-5.0); Alkaline Phosphatase 90 U/L (38-126); Blood Urea Nitrogen 9 mg/dl (7-17); Calcium 8.8 mg/dl (8.4-10.2); Carbon Dioxide 28 mmol/L (22-30); Chloride 105 mmol/L (98-107); Estimated Creatinine Clearance 92 ml/min; Glucose 91 mg/dl (70-99); Potassium 4.2 mmol/L (3.5-5.1); Sodium 141 mmol/L (135-145); Total Bilirubin 0.3 mg/dl (0.2-1.3); Total Protein 6.6 g/dl (6.3-8.2); eGFR > 60.00
[2025-03-11 11:00] VITALS: BP 126/73
[2025-03-11] MEDS: CITROMA 300 ML PO (14:12)
[2025-03-11 14:35] LABS: HIV Combo Negative (Negative)
[2025-03-11 15:00] VITALS: BP 119/74
[2025-03-11 20:13] VITALS: BP 116/69
[2025-03-11] MEDS: AMBIEN 5 MG PO (21:25)
--- NOTE | 2025-03-11 21:51 | PTCARENOTE ---
Patient refusing enema overnight--does not want to disturb her sleep. Patient states that, due to her chronic fentanyl use, she has gone over a week without having a bowel movement.
[2025-03-11 23:17] VITALS: BP 109/64
[2025-03-12] MEDS: TYLENOL PO ×2 (00:31→23:12)
[2025-03-12 03:21] VITALS: BP 118/74
[2025-03-12] MEDS: ZANAFLEX 2 MG PO ×2 (03:22→18:06)
[2025-03-12] MEDS: CATAPRES 0.1 MG PO ×3 (05:52→20:48)
--- NOTE | 2025-03-12 05:59 | PTCARENOTE ---
AAO x 3. COWS=8, at beginning of shift. x 1 dose Zanaflex and Ambien administered. Morning COWS=6. x 1 dose clonidine administered. Patient states 'I am anxious'. VSS. NSR on telemetry. Forensics patient, with two guards in the room at all times.
OOB with stand by assistance. Bed in lowest position. Call khan and personal belongings within reach. Care Home updated via telephone.
[2025-03-12 07:00] VITALS: BP 105/63
[2025-03-12 08:06] LABS: Hemoglobin 11.2 g/dL (12.0-16.0); Mean Corp Hgb Conc. 30.3 g/dL (33.0-37.0); Mean Corpuscular Volume 79.4 fL (81.0-99.0); Mean Platelet Volume 10.2 fL (7.4-10.4); Platelet Count 199 10^3/uL (130-400); Red Blood Cell Count 4.66 10^6/uL (4.20-5.40); Red Cell Dist. Width 15.5 % (11.5-14.5); White Blood Cell Count 8.3 10^3/uL (4.8-10.8)
[2025-03-12] MEDS: PROTONIX 40 MG PO ×2 (08:09→20:48)
[2025-03-12] MEDS: TYLENOL 1000 MG PO ×2 (08:09→16:34)
[2025-03-12] MEDS: SUBUTEX 20 MG SL (08:09)
[2025-03-12] MEDS: MIRALAX 17 GRAMS PO (08:10)
--- NOTE | 2025-03-12 08:15 | W.PN.HOSP.TC ---
Addendum entered and electronically signed by Ant Mcdaniel MD 03/12/25 16:07:
CVS: S1-S2 normal
Chest: CTA B/L
Abdomen: Soft, NT , bowel sounds present
Abdomen x-ray nonobstructive bowel gas pattern. Small to moderate stool
Patient took magnesium citrate yesterday
Enema today with small bowel movement
Abd soft and NT
On Suboxone
D/W RN
Will discharge
Original Note:
Today's Communication/Plan
-
- enema
Assessment / Plan
Assessment / Plan
Assessment:
39yo F pm polysubstance use w hx pyloric stenosis repair x2, congenital cardiomyopathy who presented to [facility] ED w opiate withdrawal sx. Was brought in a couple days prior for similar sx. Last used fentanyl midnight on March 06, uses 1.5 bundles daily.
Returned for continued hematemesis and CP.
Plan:
Constipation
- enema
- abd XR: Nonobstructive bowel gas pattern. Small to moderate volume widespread colonic stool.
Upper GI bleed
Acute blood loss anemia secondary to upper GI bleed
- was in the ICU for HoTN
- follow H&H
- transfuse as needed
- tolerating diet well
- IVF support stopped
- PPI BID transitioned to PO
- GI input appreciated
- f/u outpt GI for possible endoscopy
Leukopenia
- unclear etiology
- HIV screen
Opioid w/d syndrome
- active w/d is slowing down
- opioid w/d protocol
- on 20mg suboxone today
Hypokalemia
- repleted
Hypomagnesemia
- repleted
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
- no recent issues
Congential cardiomyopathy
- stable at this time
Anxiety
- cont home klonopin
DVT Prophylaxis: SCDs
Diet: low residue
Code Status: Full code
Anticipated Discharge: Within 24 hours
Subjective/Interval History
-
Date of Service: March 12, 2025
Pt constipated. Pt refused enema last night. Discussed w pt and she denies being offered an enema. She is willing to have an enema today.
Objective Data
-
Labs:
Laboratory Results
03/12/25
07:32
WBC 8.3
Hgb 11.2 L
Hct 37.0
Plt Count 199
Sodium Pending
Potassium Pending
Chloride Pending
Carbon Dioxide Pending
BUN Pending
Creatinine Pending
Glucose Pending
Calcium Pending
Vital Signs:
Vital Signs
Temp Pulse Resp BP Pulse Ox
98.7 F 81 22 118/74 100
03/12/25 03:21 03/12/25 05:52 03/12/25 03:21 03/12/25 05:52 03/12/25 03:21
I&O
03/11/25 03/12/25 03/13/25
06:59 06:59 06:59
Intake Total 1310 / 1310 480 / 480
Balance 1310 / 1310 480 / 480
Review of Systems
-
History Source: Patient
Constitutional: Reports No Symptoms
EENT: Reports No Symptoms Reported
Respiratory: Reports No Symptoms
Cardiac: Reports No Symptoms
Abdomen/GI: Reports Abdominal Pain and Constipated
Genitourinary: Reports No Symptoms
Musculoskeletal: Reports No Symptoms
Skin: Reports No Symptoms
Neuro: Reports No Symptoms
Endocrine: Reports No Symptoms
Physical Exam
-
General: Well Developed and No Apparent Distress
HEENT: Normocephalic and Atraumatic
Respiratory: Clear to Auscultation and Non Labored Respirations
Cardiac: Regular Rhythm and S1/S2
GI: Soft, Tender (epigastric ), Distended and Other (hypoactive BS)
Musculoskeletal: No Clubbing, No Cyanosis and No Edema
Neuro: Awake and AO x 3
[2025-03-12 08:38] LABS: Blood Urea Nitrogen 13 mg/dl (7-17); Calcium 8.9 mg/dl (8.4-10.2); Carbon Dioxide 29 mmol/L (22-30); Chloride 101 mmol/L (98-107); Estimated Creatinine Clearance 92 ml/min; Glucose 115 mg/dl (70-99); Potassium 4.8 mmol/L (3.5-5.1); Sodium 137 mmol/L (135-145); eGFR > 60.00
[2025-03-12 11:00] VITALS: BP 107/62
[2025-03-12] MEDS: SENOKOT 8.6 MG PO ×2 (11:28→20:48)
[2025-03-12] MEDS: MILK OF MAGNESIA 30 ML PO (11:28)
--- NOTE | 2025-03-12 11:28 | CM ---
Chart reviewed and patient to return to [facility] when stable.
[facility]
[phone]

Plan; Patient to return to [facility] when stable.
[2025-03-12] MEDS: FERRLECIT 110 MG IV (14:00)
[2025-03-12 15:00] VITALS: BP 101/64
[2025-03-12] MEDS: MINERAL OIL 30 ML PO (16:34)
[2025-03-12 19:36] VITALS: BP 122/68
[2025-03-12] MEDS: KLONOPIN 0.5 MG PO (20:48)
[2025-03-12 22:57] VITALS: BP 110/67
[2025-03-13] MEDS: TYLENOL 1000 MG PO ×4 (00:28→21:54)
[2025-03-13 03:39] VITALS: BP 115/64
[2025-03-13] MEDS: ZANAFLEX 2 MG PO ×2 (06:17→13:04)
[2025-03-13 07:15] VITALS: BP 93/55
--- NOTE | 2025-03-13 07:55 | W.PN.HOSP.TC ---
Addendum entered and electronically signed by Ant Mcdaniel MD 03/13/25 16:08:
Will also add a dose of Relistor 8 mg
Addendum entered and electronically signed by Ant Mcdaniel MD 03/13/25 16:05:
I saw and evaluated the patient. I reviewed the resident�s note and agree with findings and plan as documented in the resident�s note.
Patient had enema earlier today without much success
Abdomen is soft she also has bowel sounds
X-ray of the abdomen noted patient has moderate stool still present
Proceed with GoLytely administration to help with bowel movements as enemas, mag citrate, mineral oil, Senokot have all been tried
Original Note:
Today's Communication/Plan
-
- milk and molasses enema
- u/a
Assessment / Plan
Assessment / Plan
Assessment:
39yo F pmh polysubstance use w hx pyloric stenosis repair x2, congenital cardiomyopathy who presented to [facility] ED w opiate withdrawal sx. Was brought in a couple days prior for similar sx. Last used fentanyl midnight on March 06, uses 1.5 bundles daily.
Returned for continued hematemesis and CP.
Plan:
LBP b/l
- neg straight leg test b/l
- intact strength, reflexes
- mildly hypertonic paraspinal muscles
- paraspinal inhibition performed
Dysuria, frequency, urgency
- u/a
Constipation
- sennokot, miralax, enema
- abd XR: Nonobstructive bowel gas pattern. Small to moderate volume widespread colonic stool.
- abd visceral manipulation
Upper GI bleed
Acute blood loss anemia secondary to upper GI bleed
- was in the ICU for HoTN
- follow H&H
- transfuse as needed
- tolerating diet well
- IVF support stopped
- PPI BID transitioned to PO
- GI input appreciated
- f/u outpt GI for possible endoscopy
Leukopenia
- unclear etiology
- HIV screen
Opioid w/d syndrome
- active w/d is slowing down
- opioid w/d protocol
- on 20mg suboxone today
Hypokalemia
- repleted
Hypomagnesemia
- repleted
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
- no recent issues
Congential cardiomyopathy
- stable at this time
Anxiety
- cont home klonopin
DVT Prophylaxis: SCDs
Diet: low residue
Code Status: Full code
Anticipated Discharge: Within 24 hours
Subjective/Interval History
-
Date of Service: March 13, 2025
No BM. +Dysuria, increased urgency, increased frequency. + LBP b/l. -hematuria
Objective Data
-
Labs:
Laboratory Results
03/13/25
07:44
WBC Pending
Hgb Pending
Hct Pending
Plt Count Pending
Sodium Pending
Potassium Pending
Chloride Pending
Carbon Dioxide Pending
BUN Pending
Creatinine Pending
Glucose Pending
Calcium Pending
Total Bilirubin Pending
AST Pending
ALT Pending
Alkaline Phosphatase Pending
Vital Signs:
Vital Signs
Temp Pulse Resp BP Pulse Ox
98.4 F 95 22 115/64 96
03/13/25 03:39 03/13/25 03:39 03/13/25 03:39 03/13/25 03:39 03/13/25 03:39
I&O
03/12/25 03/13/25 03/14/25
06:59 06:59 06:59
Intake Total 480 / 480 1040 / 1040
Balance 480 / 480 1040 / 1040
Review of Systems
-
History Source: Patient
Constitutional: Reports No Symptoms
Respiratory: Reports No Symptoms
Cardiac: Reports No Symptoms
Abdomen/GI: Reports No Symptoms
Genitourinary: Reports Dysuria, Frequency and Urgency
Musculoskeletal: Reports Muscle Stiffness
Skin: Reports No Symptoms
Neuro: Reports No Symptoms
Physical Exam
-
General: No Apparent Distress
HEENT: Normocephalic, Atraumatic and Moist Mucous Membranes
Respiratory: Clear to Auscultation and Non Labored Respirations
Cardiac: Regular Rhythm and S1/S2
GI: Soft, Nontender, Nondistended and Normal Bowel Sounds
Genito-urinary: No Costovertebral Tender
Musculoskeletal: No Clubbing, No Cyanosis and No Edema
Skin: Warm and Dry
Neuro: Awake and AO x 3
Psych: Calm
[2025-03-13] MEDS: MIRALAX 17 GRAMS PO (08:04)
[2025-03-13 08:05] LABS: Hematocrit 33.8 % (37.0-47.0); Hemoglobin 10.4 g/dL (12.0-16.0); Mean Corp Hgb Conc. 30.8 g/dL (33.0-37.0); Mean Corpuscular Volume 77.9 fL (81.0-99.0); Mean Platelet Volume 10.2 fL (7.4-10.4); Platelet Count 191 10^3/uL (130-400); Red Blood Cell Count 4.34 10^6/uL (4.20-5.40); Red Cell Dist. Width 15.3 % (11.5-14.5)
[2025-03-13] MEDS: SUBUTEX 20 MG SL (08:09)
[2025-03-13] MEDS: PROTONIX 40 MG PO ×2 (08:09→21:09)
[2025-03-13] MEDS: SENOKOT 8.6 MG PO ×2 (08:11→21:09)
[2025-03-13 08:32] LABS: ALT (SGPT) 11 U/L (0-35); AST (SGOT) 15 U/L (14-36); Albumin 3.4 g/dl (3.5-5.0); Alkaline Phosphatase 103 U/L (38-126); Blood Urea Nitrogen 13 mg/dl (7-17); Calcium 8.8 mg/dl (8.4-10.2); Carbon Dioxide 28 mmol/L (22-30); Chloride 105 mmol/L (98-107); Estimated Creatinine Clearance 92 ml/min; Glucose 93 mg/dl (70-99); Potassium 4.5 mmol/L (3.5-5.1); Sodium 138 mmol/L (135-145); Total Bilirubin 0.3 mg/dl (0.2-1.3); Total Protein 6.2 g/dl (6.3-8.2); eGFR > 60.00
--- NOTE | 2025-03-13 10:29 | CM ---
Chart reviewed and block and case maker met with patient and guards at bedside, patient to return to [facility] when stable.
[facility]
[phone]

Plan; Patient to return to [facility] when stable.
[2025-03-13 11:06] VITALS: BP 112/69
[2025-03-13 15:32] VITALS: BP 117/59
[2025-03-13] MEDS: FERRLECIT 110 MG IV (15:34)
[2025-03-13 17:17] LABS: TSH 0.99 uIU/ml (0.47-4.68)
[2025-03-13] MEDS: RELISTOR 8 MG SC (17:40)
[2025-03-13] MEDS: NULYTELY SOLUTION 1 LITERS PO (17:44)
[2025-03-13] MEDS: KLONOPIN 0.5 MG PO (21:09)
--- NOTE | 2025-03-13 22:00 | PTCARENOTE ---
Patient refusing to finish entire golEchobitly drink. Patient says 'I cannot finish that, it's disgusting'.
[2025-03-13 23:12] VITALS: BP 120/73
[2025-03-14 05:38] VITALS: BP 124/72
--- NOTE | 2025-03-14 07:06 | PTCARENOTE ---
Patient complaining of left hand pain, s/p IV removal. Ice applied to site. IV team notified of suspected phlebitis.
[2025-03-14 07:37] VITALS: BP 128/68
[2025-03-14 08:00] LABS: Hematocrit 36.9 % (37.0-47.0); Hemoglobin 11.4 g/dL (12.0-16.0); Mean Corp Hgb Conc. 30.9 g/dL (33.0-37.0); Mean Corpuscular Volume 77.7 fL (81.0-99.0); Mean Platelet Volume 10.3 fL (7.4-10.4); Platelet Count 209 10^3/uL (130-400); Red Blood Cell Count 4.75 10^6/uL (4.20-5.40); Red Cell Dist. Width 15.5 % (11.5-14.5); White Blood Cell Count 9.7 10^3/uL (4.8-10.8)
[2025-03-14] MEDS: SUBUTEX 20 MG SL (08:10)
[2025-03-14] MEDS: PROTONIX 40 MG PO ×2 (08:12→21:17)
[2025-03-14] MEDS: TYLENOL 1000 MG PO ×2 (08:12→17:09)
[2025-03-14] MEDS: SENOKOT 8.6 MG PO (08:12)
[2025-03-14] MEDS: MIRALAX 17 GRAMS PO ×2 (08:13→21:17)
--- NOTE | 2025-03-14 08:26 | VATNOTE ---
Called to assess old peripheral iv site left hand. Left hand swollen painful to touch and red. marked the area measuring 5X7 cm. Cold compress applied for comfort. Elevated on pillows. Will alternate warm and cold compress. Will monitor closely.
[2025-03-14 08:31] LABS: ALT (SGPT) 13 U/L (0-35); AST (SGOT) 16 U/L (14-36); Albumin 3.7 g/dl (3.5-5.0); Alkaline Phosphatase 108 U/L (38-126); Blood Urea Nitrogen 12 mg/dl (7-17); Calcium 9.2 mg/dl (8.4-10.2); Carbon Dioxide 27 mmol/L (22-30); Chloride 103 mmol/L (98-107); Estimated Creatinine Clearance 108 ml/min; Glucose 100 mg/dl (70-99); Potassium 4.3 mmol/L (3.5-5.1); Sodium 138 mmol/L (135-145); Total Bilirubin 0.4 mg/dl (0.2-1.3); eGFR > 60.00
--- NOTE | 2025-03-14 09:17 | CM ---
Chart reviewed and case packer met with patient this am, guards at bedside, patient's plan is to to return to [facility].
[facility]
[phone]

Plan; Patient to return to [facility] when stable.
--- NOTE | 2025-03-14 10:55 | W.PN.GI.CBS2 ---
Addendum entered and electronically signed by Christian Oliva MD 03/14/25 12:48:
Patient seen and examined, agree with nurse practitioner. Called back to see patient with persistent constipation despite bowel regimen. She has received 1 dose of Relistor, magnesium citrate, mineral oil enema and GoLytely with only small bowel
movement. Initially she had vomiting and nausea this been doing well from that regard with no further significant abdominal pain and has been tolerating diet. On exam she has normal bowel sounds and soft without any specific tenderness. At this
point agree with milk of molasses enema, mag citrate and additional dose of Relistor with continued MiraLAX. Will continue to trend for now.
Original Note:
Today's Communication / Plan
-
As per plan
Assessment / Plan
-
Meche is a 39-year-old female with unfortunate active polysubstance abuse who has had withdrawal in the past who last used inhaled fentanyl and cocaine on 03/06/2025 now withdrawing in retirement here with persistent nausea vomiting initially vomiting
streaks of blood then turned marco with a 2 g drop in hemoglobin from 2 days ago. Hemoglobin stable. No further signs of upper GI bleeding. Now asked to see patient with constipation. X-ray shows constipation. They have been trying to
facilitate bowel movement since 03/11/2025 with minimal output. We are asked to evaluate to assist.
# Marco hematemesis after withdrawal from polysubstance abuse
-Pantoprazole 40 mg p.o. BID x 1 month, then once daily
# Opiate induced constipation
- Was on MiraLAX daily and senna.
- Tried mineral oil enema, bottle of mag citrate and 1 L of GoLytely with minimal results. Given Relistor 8 mg subcu once.
-- At this point we will redosed with Relistor 12 mg subcu. Can continue this dose if needed.
-- Give milk of molasses enema now. Followed by 10 ounce bottle of magnesium citrate. This was discussed with patient at length.
-- She will need to be on chronic bowel regimen going forward. Would use MiraLAX twice daily versus lactulose twice daily. And senna/Dulcolax daily.
-- Continue regular diet.
Subjective
Subjective
Date of Service: March 14, 2025
Asked to see patient again as she has not had bowel movement. Discussed with patient she has a bowel movement every 10 to 14 days as an outpatient. She has a history of chronic constipation associated with opiate use. While here since March 11 they
tried using MiraLAX, senna. March 12 she was given a bottle of magnesium citrate she was then given on March 13, Relistor 8 mg subcu, mineral oil enema and 1 liter of golytely with small BM produced. Patient without any nausea, vomiting, abdominal
pain and is tolerating a regular diet. 2 officers are at bedside as patient is currently in custody.
Objective
Data Reviewed
Laboratory Data:
Laboratory Results
03/14/25 07:36
03/14/25 07:36
Laboratory Results
PT 13.7 Sec (11.4-14.6) 03/08/25 23:43
INR 1.02 03/08/25 23:43
APTT 31.2 Sec (23.4-35.0) 03/10/25 07:27
Phosphorus 4.2 mg/dl (2.5-4.5) 03/10/25 07:27
Magnesium 1.8 mg/dl (1.6-2.3) 03/10/25 07:27
Total Bilirubin 0.4 mg/dl (0.2-1.3) 03/14/25 07:36
AST 16 U/L (14-36) 03/14/25 07:36
ALT 13 U/L (0-35) 03/14/25 07:36
Alkaline Phosphatase 108 U/L (38-126) 03/14/25 07:36
Vital Signs and I&O:
Vital Signs
Temp Pulse Resp BP Pulse Ox
98.7 F 109 17 128/68 97
03/14/25 07:37 03/14/25 07:37 03/14/25 07:37 03/14/25 07:37 03/14/25 07:37
I&O
03/13/25 03/14/25 03/15/25
06:59 06:59 06:59
Intake Total 1040 / 1040 1400 / 1400
Balance 1040 / 1040 1400 / 1400
Physical Exam
Physical Exam
HEENT: Anicteric
Cardiology: Normal Sinus Rhythm
Pulmonary: Clear
GI: Soft, Non Distended, Non Tender and Normal Bowel Sounds
Extremities: No Edema and Other (Patient with right leg Shackle in place)
Neuro: Non Focal
[2025-03-14] MEDS: NULYTELY SOLUTION 1 LITERS PO (11:40)
[2025-03-14] MEDS: ZANAFLEX 2 MG PO (11:40)
--- NOTE | 2025-03-14 13:08 | W.PN.HOSP.TC ---
Today's Communication/Plan
-
Bowel regimen
Assessment / Plan
Assessment / Plan
39-year-old female presented from the skilled nursing with opiate withdrawal. She reports using fentanyl and cocaine last use was 03/06/2025. She was in the ER on 03 07 with symptoms symptoms and was discharged back to skilled nursing on withdrawal protocol. She had a
lot of nausea and vomiting and vomited blood.
CVS: S1-S2 normal
Chest: CTA B/L
Abdomen: Soft, NT / Bowel sounds present
Extremities: No edema, normal pulses
BILLBOARD POSTER: Non focal exam
redness and mild edema dorsal hand left
# Constipation
Likely opiate induced
Multiple medicines trialed. Patient was started on GoLytely yesterday and given a dose of Relistor
Continue GoLytely along with MiraLAX which was changed to twice daily, Senokot.
GI evaluation
# Fever-likely secondary to constipation versus mild aspiration pneumonia versus phlebitis on the left arm
Augmentin added
Cultures ordered
Urine analysis with a lot of squamous cells-likely not UTI
# Hematemesis
Acute blood loss anemia secondary to above
Possible Anne-Lima tear
Continue PPI twice daily for 1 month and then daily
GI consulted for possible endoscopic evaluation-deferring EGD at this time
Continue antiemetics
Diet advanced
# Opiate abuse with withdrawal symptoms
Urine drug screen was positive for opiates, fentanyl, cocaine, marijuana, benzo, buprenorphine (patient was prescribed buprenorphine and benzos)
Continue opiate withdrawal protocol SCORE COWS score.
Continue as needed Zanaflex, clonidine, Subutex
# Iron deficiency anemia-replace IV iron
# Hypokalemia-resolved
# Congenital pyloric stenosis with history of repair as an
# Mental health [id number] Klonopin
# Congenital cardiomyopathy
# DVT prophylaxis-Lovenox added
# Full code
D/W RN
Part of this note was created using voice recognition system. Occasional wrong word or��sound alike� substitutions may have inadvertently occurred due to the inherent limitations of voice recognition software. If noted kindly bring it to my
attention for correction.
Anticipated Discharge: Within 24 hours
Subjective/Interval History
-
Date of Service: March 14, 2025
Objective Data
-
Labs:
Laboratory Results
03/14/25
07:36
WBC 9.7
Hgb 11.4 L
Hct 36.9 L
Plt Count 209
Sodium 138
Potassium 4.3
Chloride 103
Carbon Dioxide 27
BUN 12
Creatinine 0.6
Glucose 100 H
Calcium 9.2
Total Bilirubin 0.4
AST 16
ALT 13
Alkaline Phosphatase 108
Vital Signs:
Vital Signs
Temp Pulse Resp BP Pulse Ox
98.7 F 109 17 128/68 97
03/14/25 07:37 03/14/25 07:37 03/14/25 07:37 03/14/25 07:37 03/14/25 07:37
I&O
03/13/25 03/14/25 03/15/25
06:59 06:59 06:59
Intake Total 1040 / 1040 1400 / 1400
Balance 1040 / 1040 1400 / 1400
[2025-03-14] MEDS: AUGMENTIN 875 MG/125 MG 1 TABLET PO ×2 (14:44→21:16)
[2025-03-14] MEDS: FERRLECIT 110 MG IV (14:44)
[2025-03-14 16:10] VITALS: BP 101/63
[2025-03-14 16:58] LABS: Lactic Acid 1.8 mmol/L (0.7-2.0)
[2025-03-14] MEDS: NSS 1000 IV (17:09)
[2025-03-14] MEDS: LOVENOX 40 MG SC (17:12)
[2025-03-14] MEDS: OMNIPAQUE 50 ML PO (17:12)
[2025-03-14 17:37] LABS: Urine Albumin 2+ (Neg - Trace); Urine Bilirubin Negative (Negative); Urine Character Cloudy (Clear); Urine Color Yellow; Urine Glucose Negative (Negative); Urine Ketone Negative (Negative); Urine Leukocyte 3+ (Negative); Urine Nitrite Positive (Negative); Urine Occult Blood 2+ (Negative); Urine Urobilinogen Negative (Neg - 1+)
[2025-03-14 17:50] LABS: Urine Bacteria Many (Negative); Urine White Cell 26-30 /HPF (0-5)
[2025-03-14] MEDS: KLONOPIN 0.5 MG PO (21:17)
[2025-03-14] MEDS: SENOKOT 17.2 MG PO (21:17)
[2025-03-14 23:38] VITALS: BP 125/84
[2025-03-15] MEDS: TYLENOL 1000 MG PO ×3 (04:49→23:50)
[2025-03-15] MEDS: ZANAFLEX 2 MG PO ×2 (04:49→11:59)
[2025-03-15 05:00] VITALS: BP 124/83
[2025-03-15 07:00] VITALS: BP 110/64
--- NOTE | 2025-03-15 08:11 | W.PN.GI.CBS2 ---
Addendum entered and electronically signed by Christian Oliva MD 03/15/25 11:26:
Patient seen and examined, agree with nurse practitioner note. Patient feeling well, no significant abdominal pain, nausea or vomiting, no significant bowel movements. On exam has no significant tenderness or distention, labs stable.
1. Constipation: Multifactorial, likely polysubstance abuse and medications. Overall her exam is benign and CT scan had moderate stool though no impaction or severe stool. Will receive another dose of Relistor today, they would continue MiraLAX
twice daily. Will sign off for now, though please go back with any further questions or any change in GI symptoms.
Addendum entered and electronically signed by PATEL Bridges 03/15/25 08:26:
TSH stable at 0.99
Original Note:
Today's Communication / Plan
-
concern for opioid induced constipation
abdomen soft without distention- no nausea, vomiting or abdominal pain
03/14 CT moderate stool burden
minimal stool with multiple laxatives
give additional dose of Relistor today
cont diet
Assessment / Plan
-
Meche is a 39-year-old female with unfortunate active polysubstance abuse who has had withdrawal in the past who last used inhaled fentanyl and cocaine on 03/06/2025 now withdrawing in care home here with persistent nausea vomiting initially vomiting
streaks of blood then turned samir with a 2 g drop in hemoglobin from 2 days ago. Hemoglobin stable. No further signs of upper GI bleeding. Now asked to see patient with constipation. X-ray shows constipation. They have been trying to
facilitate bowel movement since 03/11/2025 with minimal output. We are asked to evaluate to assist.
03/14 CT
1. No significant acute abnormality identified in the abdomen or pelvis, as described above.
2. Bilateral lower lobe pneumonia, possibly aspiration related.
3. Moderate diffuse colonic stool burden may reflect constipation.
# Samir hematemesis after withdrawal from polysubstance abuse
-Pantoprazole 40 mg p.o. BID x 1 month, then once daily
# Opiate induced constipation
- on MiraLAX daily and senna without improvement
- Tried enema (though pt declines some dose), mag citrate and GoLytely(did no complete) with minimal results. Given Relistor 8 mg subcu once given 03/13 1730
will give additional dose 12 mg today
-- Continue regular diet.
Subjective
Subjective
Date of Service: March 15, 2025
small amount of stool with multiple laxative, no abdominal pain or bloating, nausea or vomiting on regular diet
Objective
Data Reviewed
Laboratory Data:
Laboratory Results
PT 13.7 Sec (11.4-14.6) 03/08/25 23:43
INR 1.02 03/08/25 23:43
APTT 31.2 Sec (23.4-35.0) 03/10/25 07:27
Phosphorus 4.2 mg/dl (2.5-4.5) 03/10/25 07:27
Magnesium 1.8 mg/dl (1.6-2.3) 03/10/25 07:27
Total Bilirubin 0.4 mg/dl (0.2-1.3) 03/14/25 07:36
AST 16 U/L (14-36) 03/14/25 07:36
ALT 13 U/L (0-35) 03/14/25 07:36
Alkaline Phosphatase 108 U/L (38-126) 03/14/25 07:36
Vital Signs and I&O:
Vital Signs
Temp Pulse Resp BP Pulse Ox
98.5 F 108 22 124/83 94
03/15/25 05:00 03/15/25 05:00 03/15/25 05:00 03/15/25 05:00 03/15/25 05:00
I&O
03/14/25 03/15/25 03/16/25
06:59 06:59 06:59
Intake Total 1400 / 1400
Balance 1400 / 1400
Physical Exam
Physical Exam
HEENT: Anicteric and Moist mucous membranes
Cardiology: Normal Sinus Rhythm
Pulmonary: Clear
GI: Soft, Non Distended and Non Tender
Extremities: No Edema
Neuro: Non Focal
[2025-03-15] MEDS: SUBUTEX 20 MG SL (08:35)
[2025-03-15] MEDS: SENOKOT 17.2 MG PO ×2 (08:37→20:38)
[2025-03-15] MEDS: PROTONIX 40 MG PO ×2 (08:49→20:38)
[2025-03-15] MEDS: AUGMENTIN 875 MG/125 MG 1 TABLET PO ×2 (08:52→20:38)
[2025-03-15] MEDS: MIRALAX 17 GRAMS PO ×2 (08:52→20:37)
--- NOTE | 2025-03-15 09:26 | VATNOTE ---
Vat rounds: Left hand continues to be painful and red. left hand elevated on pillows. Warm compress applied for comfort. Will continue to monitor closely.
[2025-03-15] MEDS: RELISTOR 12 MG SC (10:47)
[2025-03-15 11:11] LABS: Hematocrit 34.5 % (37.0-47.0); Hemoglobin 10.6 g/dL (12.0-16.0); Mean Corp Hgb Conc. 30.7 g/dL (33.0-37.0); Mean Corpuscular Hgb 23.6 pg (27.0-31.0); Mean Corpuscular Volume 76.8 fL (81.0-99.0); Mean Platelet Volume 10.8 fL (7.4-10.4); Platelet Count 208 10^3/uL (130-400); Red Blood Cell Count 4.49 10^6/uL (4.20-5.40); Red Cell Dist. Width 15.9 % (11.5-14.5); White Blood Cell Count 8.5 10^3/uL (4.8-10.8)
--- NOTE | 2025-03-15 11:18 | W.PN.HOSP.TC ---
Today's Communication/Plan
-
Discharge once pt has a BM
Monitor all bathroom visits
Assessment / Plan
Assessment / Plan
39-year-old female presented from the [place] [facility] with opiate withdrawal. She reports using fentanyl and cocaine last use was 03/06/2025. She was in the ER on 5 2 with symptoms symptoms and was discharged back to [facility] on withdrawal protocol. She had a
lot of nausea and vomiting and vomited blood.
CVS: S1-S2 normal
Chest: CTA B/L
Abdomen: Soft, NT / Bowel sounds present
Extremities: No edema, normal pulses
CATTLE TRADER: Non focal exam
redness and mild edema dorsal hand left- much better
# Constipation
Likely opiate induced
Multiple medicines trialed. Patient was started on GoLytely and given a dose of Relistor 03/13/25
Continue GoLytely along with MiraLAX which was changed to twice daily, Senokot.
GI evaluation appreciated
More Relistor and Golytely today
# Fever-
Likely secondary to constipation versus mild aspiration pneumonia versus phlebitis on the left arm- She doesn't comply with compresses per RN
Augmentin added
Cultures ordered
Urine analysis with a lot of squamous cells-likely not UTI
CT A/P with no acute changes
# Hematemesis
Acute blood loss anemia secondary to above
Possible Anne-Lima tear
Continue PPI twice daily for 1 month and then daily
GI consulted for possible endoscopic evaluation-deferring EGD at this time
# Opiate abuse with withdrawal symptoms
Urine drug screen was positive for opiates, fentanyl, cocaine, marijuana, benzo, buprenorphine (patient was prescribed buprenorphine and benzos)
Continue opiate withdrawal protocol SCORE COWS score.
Continue as needed Zanaflex, clonidine, Subutex
# Iron deficiency anemia-replace IV iron
# Hypokalemia-resolved
# Congenital pyloric stenosis with history of repair as an
# Mental health escromwd-rmfmqlt-mudrtihb Klonopin
# Congenital cardiomyopathy
# DVT prophylaxis-Lovenox
# Full code
D/W RN at bed side
Part of this note was created using voice recognition system. Occasional wrong word or��sound alike� substitutions may have inadvertently occurred due to the inherent limitations of voice recognition software. If noted kindly bring it to my
attention for correction.
Anticipated Discharge: Within 24 hours
Subjective/Interval History
-
Date of Service: March 15, 2025
Objective Data
-
Labs:
Laboratory Results
03/15/25
09:47
WBC 8.5
Hgb 10.6 L
Hct 34.5 L
Plt Count 208
Sodium Pending
Potassium Pending
Chloride Pending
Carbon Dioxide Pending
BUN Pending
Creatinine Pending
Glucose Pending
Calcium Pending
Total Bilirubin Pending
AST Pending
ALT Pending
Alkaline Phosphatase Pending
Vital Signs:
Vital Signs
Temp Pulse Resp BP Pulse Ox
98.3 F 89 16 110/64 96
03/15/25 07:00 03/15/25 07:00 03/15/25 07:00 03/15/25 07:00 03/15/25 07:00
I&O
03/14/25 03/15/25 03/16/25
06:59 06:59 06:59
Intake Total 1400 / 1400
Balance 1400 / 1400
[2025-03-15 11:39] LABS: ALT (SGPT) 13 U/L (0-35); AST (SGOT) 16 U/L (14-36); Alkaline Phosphatase 102 U/L (38-126); Blood Urea Nitrogen 10 mg/dl (7-17); Calcium 9.2 mg/dl (8.4-10.2); Carbon Dioxide 26 mmol/L (22-30); Chloride 102 mmol/L (98-107); Estimated Creatinine Clearance 108 ml/min; Glucose 105 mg/dl (70-99); Potassium 4.3 mmol/L (3.5-5.1); Sodium 139 mmol/L (135-145); Total Bilirubin 0.5 mg/dl (0.2-1.3); Total Protein 7.1 g/dl (6.3-8.2); eGFR > 60.00
[2025-03-15] MEDS: DICLOFENAC 1% TOPICAL GEL 2 GRAM TOPICAL ×3 (12:02→22:49)
[2025-03-15] MEDS: NSS IV (14:55)
[2025-03-15 15:00] VITALS: BP 109/67
[2025-03-15] MEDS: FERRLECIT 110 MG IV (15:31)
[2025-03-15] MEDS: LOVENOX 40 MG SC (18:29)
[2025-03-15] MEDS: KLONOPIN 0.5 MG PO (22:50)
[2025-03-15 23:07] VITALS: BP 135/80
[2025-03-16 07:00] VITALS: BP 107/61
[2025-03-16] MEDS: TYLENOL PO (07:07)
[2025-03-16] MEDS: TYLENOL 1000 MG PO (09:24)
[2025-03-16] MEDS: SENOKOT 17.2 MG PO ×2 (09:25→20:35)
[2025-03-16] MEDS: PROTONIX 40 MG PO ×2 (09:25→20:35)
[2025-03-16] MEDS: SUBUTEX 20 MG SL (09:26)
[2025-03-16] MEDS: AUGMENTIN 875 MG/125 MG 1 TABLET PO ×2 (09:27→20:35)
[2025-03-16] MEDS: MIRALAX 17 GRAMS PO ×2 (09:28→20:36)
[2025-03-16] MEDS: DICLOFENAC 1% TOPICAL GEL 2 GRAM TOPICAL ×3 (09:28→18:02)
--- NOTE | 2025-03-16 12:33 | VATNOTE ---
VAT rounds: Pt states that L hand phlebitis is getting worse, having a difficult time bending fingers and site appears to be exquisitely tender. Hand is swollen, red and painful. Attempted to apply moist warm compress but pt feels compress hurts too
much to apply. PCN to wrap arm in warm blanket to see if it is more tolerable. MD notified, will assess site during rounds.
[2025-03-16] MEDS: ZANAFLEX 2 MG PO ×2 (12:47→20:35)
[2025-03-16] MEDS: RELISTOR 8 MG SC (14:35)
[2025-03-16] MEDS: FERRLECIT 110 MG IV (14:37)
[2025-03-16] MEDS: NULYTELY SOLUTION 2 LITERS PO (14:40)
[2025-03-16 15:00] VITALS: BP 113/79
--- NOTE | 2025-03-16 15:05 | W.PN.HOSP.TC ---
Today's Communication/Plan
-
Await a BM
Relistor and Golytely.
Ambulate
Assessment / Plan
Assessment / Plan
39-year-old female [facility] with [facility] withdrawal. She reports using fentanyl and cocaine last use was 03/06/2025. She was in the ER on 5 2 with symptoms symptoms and was discharged back to [facility] on withdrawal protocol. She had a
lot of nausea and vomiting and vomited blood.
CVS: S1-S2 normal
Chest: CTA B/L
Abdomen: Soft, NT / Bowel sounds present
Extremities: No edema, normal pulses
INVENTORY CHECKER: Non focal exam
redness and mild edema dorsal hand left- looks much better. No fluctuance or Fluctuance
Ct A/P- No significant acute abnormality identified in the abdomen or pelvis, as described above.Bilateral lower lobe pneumonia, possibly aspiration related.Moderate diffuse colonic stool burden may reflect constipation.
# Constipation
Likely opiate induced
Multiple medicines trialed.
Mirala, Senna, Relistor, MOM enemas, Golytely.
X ray in am to confirm if pt still has stool
GI saw pt and signed off
# Fever-
Likely secondary to constipation versus mild aspiration pneumonia versus phlebitis on the left arm- She doesn't comply with compresses per RN
Augmentin added
Cultures ordered
Urine analysis with a lot of squamous cells-likely not UTI
CT A/P with no acute changes
# Hematemesis
Acute blood loss anemia secondary to above
Possible Anne-Lima tear
Continue PPI twice daily for 1 month and then daily
GI consulted for possible endoscopic evaluation-deferring EGD at this time
# Opiate abuse with withdrawal symptoms
Urine drug screen was positive for opiates, fentanyl, cocaine, marijuana, benzo, buprenorphine (patient was prescribed buprenorphine and benzos)
Continue opiate withdrawal protocol SCORE COWS score.
Continue as needed Zanaflex, clonidine, Subutex
# Iron deficiency anemia-replace IV iron
# Hypokalemia-resolved
# Congenital pyloric stenosis with history of repair as an infant
# Mental health uqlzhpiw-yebbzei-hvqsoujy Klonopin
# Congenital cardiomyopathy
# DVT prophylaxis-Lovenox
# Full code
D/W RN at bed side
Discussed with correctional officers to get patient walking around . They will do that.
Part of this note was created using voice recognition system. Occasional wrong word or��sound alike� substitutions may have inadvertently occurred due to the inherent limitations of voice recognition software. If noted kindly bring it to my
attention for correction.
Anticipated Discharge: Within 24 hours
Subjective/Interval History
-
Date of Service: March 16, 2025
Objective Data
-
Vital Signs:
Vital Signs
Temp Pulse Resp BP Pulse Ox
97.7 F 94 16 107/61 96
03/16/25 07:00 03/16/25 07:00 03/16/25 07:00 03/16/25 07:00 03/16/25 07:00
I&O
03/15/25 03/16/25 03/17/25
06:59 06:59 06:59
Intake Total 240 / 240
Balance 240 / 240
--- NOTE | 2025-03-16 16:16 | CM ---
Chart reviewed chart, patient's plan is to to return to [facility].
[facility]
[phone]

Plan; Patient to return to [facility] when stable.
[2025-03-16] MEDS: LOVENOX 40 MG SC (18:03)
[2025-03-16] MEDS: DICLOFENAC 1% TOPICAL GEL 100 GRAM TOPICAL (22:11)
[2025-03-16] MEDS: KLONOPIN 0.5 MG PO (22:11)
[2025-03-16 23:32] VITALS: BP 108/66
[2025-03-17 07:46] VITALS: BP 113/74
--- NOTE | 2025-03-17 07:53 | W.PN.HOSP.TC ---
Addendum entered and electronically signed by Bandar Lilly MD 03/17/25 16:23:
I saw and evaluated the patient. I reviewed the resident�s note and agree with findings and plan as documented in the resident�s note.
1. Opiate withdrawal -patient have polysubstance use with urine drug send positive for opiates/fentanyl/cocaine/marijuana/benzo/buprenorphine (prescribed). Patient was treated with opioid withdrawal protocol. Currently on
Zanaflex/clonidine/Subutex.
2. Hematemesis -likely from Anne-Lima tear which in turn was from withdrawal related nausea and vomiting. GI recommended twice daily PPI.
3. Episode of fever -isolated episode and likely felt to be left arm phlebitis related versus aspiration pneumonia. On empiric Augmentin therapy.
4. Severe constipation -patient have significant constipation with abdominal x-ray still showing moderate to large amount of stool in transverse colon. Patient has been tried with oral laxatives/colon prep/methylnaltrexone. Lactulose and enema
ordered today
Original Note:
Today's Communication/Plan
-
- await a bm
Assessment / Plan
Assessment / Plan
Assessment:
39yo F [facility] polysubstance use w hx pyloric stenosis repair x2, congenital cardiomyopathy who presented to [facility] ED w opiate withdrawal sx. Was brought in a couple days prior for similar sx. Last used fentanyl midnight on March 06, uses 1.5 bundles daily.
Returned for continued hematemesis and CP.
Plan:
LBP b/l
- neg straight leg test b/l
- intact strength, reflexes
- mildly hypertonic paraspinal muscles
- paraspinal inhibition performed
Dysuria, frequency, urgency
- u/a
Constipation
- sennokot, miralax, docusate, lactulose, enema
- abd XR: Nonobstructive bowel gas pattern. Small to moderate volume widespread colonic stool.
- abd visceral manipulation
Upper GI bleed
Acute blood loss anemia secondary to upper GI bleed
- was in the ICU for HoTN
- follow H&H
- transfuse as needed
- tolerating diet well
- IVF support stopped
- PPI BID transitioned to PO
- GI input appreciated
- f/u outpt GI for possible endoscopy
Leukopenia
- unclear etiology
- HIV screen
Opioid w/d syndrome
- active w/d is slowing down
- opioid w/d protocol
- on 20mg suboxone today
Hypokalemia
- repleted
Hypomagnesemia
- repleted
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
- no recent issues
Congential cardiomyopathy
- stable at this time
Anxiety
- cont home klonopin
DVT Prophylaxis: SCDs
Diet: low residue
Code Status: Full code
Anticipated Discharge: Within 24 hours
Subjective/Interval History
-
Date of Service: March 17, 2025
No acute overnight events
Objective Data
-
Labs:
Laboratory Results
03/17/25
06:00
WBC Pending
Hgb Pending
Hct Pending
Plt Count Pending
Sodium Pending
Potassium Pending
Chloride Pending
Carbon Dioxide Pending
BUN Pending
Creatinine Pending
Glucose Pending
Calcium Pending
Vital Signs:
Vital Signs
Temp Pulse Resp BP Pulse Ox
98.4 F 96 12 108/66 97
03/16/25 23:32 03/16/25 23:32 03/16/25 23:32 03/16/25 23:32 03/16/25 23:32
I&O
03/16/25 03/17/25 03/18/25
06:59 06:59 06:59
Intake Total 240 / 240 240 / 240
Balance 240 / 240 240 / 240
Review of Systems
-
History Source: Patient
Constitutional: Reports No Symptoms
EENT: Reports No Symptoms Reported
Respiratory: Reports No Symptoms
Cardiac: Reports No Symptoms
Abdomen/GI: Reports No Symptoms
Genitourinary: Reports No Symptoms
Musculoskeletal: Reports No Symptoms
Neuro: Reports No Symptoms
Physical Exam
-
General: Well Developed and Well Nourished
HEENT: Normocephalic and Atraumatic
Respiratory: Clear to Auscultation
Cardiac: Regular Rhythm and S1/S2
GI: Soft, Nontender, Nondistended and Normal Bowel Sounds
Musculoskeletal: No Clubbing, No Cyanosis and No Edema
Skin: Warm and Dry
Neuro: Awake and AO x 3
[2025-03-17] MEDS: DICLOFENAC 1% TOPICAL GEL 100 GRAM TOPICAL ×4 (08:24→22:25)
[2025-03-17] MEDS: MIRALAX 17 GRAMS PO ×2 (08:24→19:43)
[2025-03-17] MEDS: SENOKOT 17.2 MG PO ×2 (08:25→19:43)
[2025-03-17] MEDS: AUGMENTIN 875 MG/125 MG 1 TABLET PO ×2 (08:25→19:43)
[2025-03-17] MEDS: PROTONIX 40 MG PO ×2 (08:25→19:43)
[2025-03-17] MEDS: SUBUTEX 20 MG SL (08:26)
--- NOTE | 2025-03-17 08:30 | VATNOTE ---
Vat rounds: left hand 'feels alittle better'. swelling decrease redness has gone down. measuring 4 cmX 6 cm. Elevated on pillow. will continume warm compress.
[2025-03-17 10:06] LABS: Hematocrit 34.9 % (37.0-47.0); Hemoglobin 10.9 g/dL (12.0-16.0); Mean Corp Hgb Conc. 31.2 g/dL (33.0-37.0); Mean Corpuscular Hgb 24.5 pg (27.0-31.0); Mean Corpuscular Volume 78.6 fL (81.0-99.0); Mean Platelet Volume 9.6 fL (7.4-10.4); Platelet Count 211 10^3/uL (130-400); Red Blood Cell Count 4.44 10^6/uL (4.20-5.40); Red Cell Dist. Width 15.9 % (11.5-14.5)
[2025-03-17 10:23] LABS: Blood Urea Nitrogen 17 mg/dl (7-17); Calcium 9.1 mg/dl (8.4-10.2); Carbon Dioxide 30 mmol/L (22-30); Chloride 103 mmol/L (98-107); Estimated Creatinine Clearance 92 ml/min; Glucose 99 mg/dl (70-99); Potassium 4.4 mmol/L (3.5-5.1); Sodium 140 mmol/L (135-145); eGFR > 60.00
[2025-03-17] MEDS: DUPHALAC/CHRONULAC 30 GRAMS PO ×3 (12:13→22:26)
--- NOTE | 2025-03-17 12:25 | W.PN.GI.CBS2 ---
Today's Communication / Plan
-
-- pt with multiple laxative without stool -right sided stool burden on imaging
--- no signs of acute issue as no vomiting, distention or pain, fever 5/8 but no recurrence since that time, no leukocytosis
-cont current regiment with mirlax BID, senna BID and lactulose TID (just added)
Assessment / Plan
-
Meche is a 39-year-old female with unfortunate active polysubstance abuse who has had withdrawal in the past who last used inhaled fentanyl and cocaine on 03/06/2025 now withdrawing in [facility] here with persistent nausea vomiting initially vomiting
streaks of blood then turned marco with a 2 g drop in hemoglobin from 2 days ago. Hemoglobin stable. No further signs of upper GI bleeding. Now asked to see patient with constipation. X-ray shows constipation. They have been trying to
facilitate bowel movement since 03/11/2025 with minimal output. We are asked to evaluate to assist.
03/14 CT
1. No significant acute abnormality identified in the abdomen or pelvis, as described above.
2. Bilateral lower lobe pneumonia, possibly aspiration related.
3. Moderate diffuse colonic stool burden may reflect constipation.
03/17 abd X ray non obsttructive pattern moderate to large volume of stool right and transverse colon
# Marco hematemesis after withdrawal from polysubstance abuse
-Pantoprazole 40 mg p.o. BID x 1 month, then once daily
# Opiate induced constipation
-- normal pattern 2-3 stools per month with not eating much and opioid use
-- pt with multiple laxative without stool -right sided stool burden on imaging
--- no signs of acute issue as no vomiting, distention or pain, fever 5/8 but no recurrence since that time, no leukocytosis
-cont current regiment with mirlax BID, senna BID and lactulose TID(just added)
--s/p enema, mag citrate, colyte and several doses of relistor
-- Continue regular diet with good intakes
Subjective
Subjective
Date of Service: March 17, 2025
5/8 stool on regular diet denies bloating of vomting -- pt patient baseline stools 2-3 per month
Objective
Data Reviewed
Laboratory Data:
Laboratory Results
03/17/25 09:57
03/17/25 09:57
Laboratory Results
PT 13.7 Sec (11.4-14.6) 03/08/25 23:43
INR 1.02 03/08/25 23:43
APTT 31.2 Sec (23.4-35.0) 03/10/25 07:27
Phosphorus 4.2 mg/dl (2.5-4.5) 03/10/25 07:27
Magnesium 1.8 mg/dl (1.6-2.3) 03/10/25 07:27
Total Bilirubin 0.5 mg/dl (0.2-1.3) 03/15/25 09:47
AST 16 U/L (14-36) 03/15/25 09:47
ALT 13 U/L (0-35) 03/15/25 09:47
Alkaline Phosphatase 102 U/L (38-126) 03/15/25 09:47
Vital Signs and I&O:
Vital Signs
Temp Pulse Resp BP Pulse Ox
98.5 F 103 18 113/74 95
03/17/25 07:46 03/17/25 07:46 03/17/25 07:46 03/17/25 07:46 03/17/25 07:46
I&O
03/16/25 03/17/25 03/18/25
06:59 06:59 06:59
Intake Total 240 / 240 240 / 240
Balance 240 / 240 240 / 240
Physical Exam
Physical Exam
HEENT: Anicteric and Moist mucous membranes
Cardiology: Normal Sinus Rhythm
Pulmonary: Clear
GI: Soft
Extremities: No Edema
Neuro: Non Focal
--- NOTE | 2025-03-17 13:03 | CM ---
Chart reviewed plan is for patient to return to [facility] when stable, 2 guards at bedside.
[facility]
[phone]

Plan; Patient to return to [facility] when stable.
[2025-03-17 15:17] VITALS: BP 115/76
[2025-03-17] MEDS: TYLENOL 1000 MG PO (17:58)
[2025-03-17] MEDS: LOVENOX 40 MG SC (17:58)
[2025-03-17] MEDS: ZANAFLEX 2 MG PO (18:06)
[2025-03-17] MEDS: KLONOPIN 0.5 MG PO (22:27)
[2025-03-17 23:38] VITALS: BP 118/73
[2025-03-18 07:37] VITALS: BP 119/80
[2025-03-18 07:52] LABS: Hematocrit 36.2 % (37.0-47.0); Hemoglobin 11.1 g/dL (12.0-16.0); Mean Corp Hgb Conc. 30.7 g/dL (33.0-37.0); Mean Corpuscular Volume 78.2 fL (81.0-99.0); Platelet Count 227 10^3/uL (130-400); Red Blood Cell Count 4.63 10^6/uL (4.20-5.40); White Blood Cell Count 3.9 10^3/uL (4.8-10.8)
--- NOTE | 2025-03-18 08:08 | W.PN.HOSP.TC ---
Today's Communication/Plan
-
dc today
Assessment / Plan
Assessment / Plan
Assessment:
39yo F [facility] polysubstance use w hx pyloric stenosis repair x2, congenital cardiomyopathy who presented to [facility] ED w opiate withdrawal sx. Was brought in a couple days prior for similar sx. Last used fentanyl midnight on March 06, uses 1.5 bundles daily.
Returned for continued hematemesis and CP.
Plan:
Cough
- covid neg
- CXR: no acute cardiopulmonary processes
LBP b/l
- neg straight leg test b/l
- intact strength, reflexes
- mildly hypertonic paraspinal muscles
- paraspinal inhibition performed
Dysuria, frequency, urgency
- u/a
Constipation
- sennokot, miralax, docusate, lactulose, enema
- abd XR: Nonobstructive bowel gas pattern. Small to moderate volume widespread colonic stool.
- abd visceral manipulation
Upper GI bleed
Acute blood loss anemia secondary to upper GI bleed
- was in the ICU for HoTN
- follow H&H
- transfuse as needed
- tolerating diet well
- IVF support stopped
- PPI BID transitioned to PO
- GI input appreciated
- f/u outpt GI for possible endoscopy
Leukopenia
- unclear etiology
- HIV screen
Opioid w/d syndrome
- active w/d is slowing down
- opioid w/d protocol
- on 20mg suboxone today
Hypokalemia
- repleted
Hypomagnesemia
- repleted
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
- no recent issues
Congential cardiomyopathy
- stable at this time
Anxiety
- cont home klonopin
DVT Prophylaxis: SCDs
Diet: low residue
Code Status: Full code
Anticipated Discharge: Today
Subjective/Interval History
-
Date of Service: March 18, 2025
Small BM this morning. Now w a productive cough and inability to taste her food.
Objective Data
-
Labs:
Laboratory Results
03/18/25
07:13
WBC 3.9 L
Hgb 11.1 L
Hct 36.2 L
Plt Count 227
Sodium Pending
Potassium Pending
Chloride Pending
Carbon Dioxide Pending
BUN Pending
Creatinine Pending
Glucose Pending
Calcium Pending
Vital Signs:
Vital Signs
Temp Pulse Resp BP Pulse Ox
98.2 F 110 18 119/80 99
03/18/25 07:37 03/18/25 07:37 03/18/25 07:37 03/18/25 07:37 03/18/25 07:37
I&O
03/17/25 03/18/25 03/19/25
06:59 06:59 06:59
Intake Total 240 / 240 1680 / 1680
Balance 240 / 240 1680 / 1680
Review of Systems
-
History Source: Patient
Constitutional: Reports No Symptoms
EENT: Reports Other (loss of taste)
Respiratory: Reports Cough
Cardiac: Reports No Symptoms
Abdomen/GI: Reports No Symptoms
Genitourinary: Reports No Symptoms
Musculoskeletal: Reports No Symptoms
Skin: Reports No Symptoms
Neuro: Reports No Symptoms
Physical Exam
-
General: Well Developed, Well Nourished and Appears in Distress
HEENT: Normocephalic and Atraumatic
Respiratory: Clear to Auscultation
Cardiac: Regular Rhythm and S1/S2
GI: Soft, Nontender, Nondistended and Other (hyperactive BS)
Musculoskeletal: No Clubbing, No Cyanosis and No Edema
Skin: Warm, Dry and Rash
Neuro: Awake and Alert
[2025-03-18 08:17] LABS: Blood Urea Nitrogen 12 mg/dl (7-17); Calcium 9.1 mg/dl (8.4-10.2); Carbon Dioxide 28 mmol/L (22-30); Chloride 107 mmol/L (98-107); Estimated Creatinine Clearance 108 ml/min; Glucose 92 mg/dl (70-99); Potassium 4.5 mmol/L (3.5-5.1); Sodium 141 mmol/L (135-145); eGFR > 60.00
[2025-03-18] MEDS: DUPHALAC/CHRONULAC 30 GRAMS PO (08:19)
[2025-03-18] MEDS: AUGMENTIN 875 MG/125 MG 1 TABLET PO (08:20)
[2025-03-18] MEDS: PROTONIX 40 MG PO (08:20)
[2025-03-18] MEDS: SUBUTEX 20 MG SL (08:20)
[2025-03-18] MEDS: SENOKOT 17.2 MG PO (08:20)
[2025-03-18] MEDS: DICLOFENAC 1% TOPICAL GEL TOPICAL ×3 (08:21→15:22)
[2025-03-18] MEDS: MIRALAX 17 GRAMS PO (08:21)
[2025-03-18 09:50] LABS: COVID-19 Antigen Negative (Negative)
--- NOTE | 2025-03-18 10:45 | CM ---
Patient to return to [facility] when stable.
[facility]
[phone]

Plan; Patient to return to [facility] when stable.
--- NOTE | 2025-03-18 11:07 | W.DCSUMMARY ---
Discharge Summary
Discharge Data
Date of Admission: 03/09/25
Date of Discharge: 03/18/25
-
Pending Results: No
Hospital Course
Discharging Physician : Dr. Klaudia Castillo, Dr. Bandar Lilly
Disposition : Retirement
Primary care physician : Pt does not know
Principal Discharge diagnosis : Presumed Anne-Lima tear, possible opiate withdrawal, severe narcotic induced constipation
Chronic Discharge diagnosis : opiate use disorder
Hospital Course : 39[address] [facility] polysubstance use w hx pyloric stenosis repair x2, congenital cardiomyopathy who presented to [facility] ED on 03/08 w opiate withdrawal sx. Was brought in a couple days prior for similar sx. Last used fentanyl midnight on March
1, uses 1.5 bundles daily. Returned for continued hematemesis and CP. Pt successfully treated with 16mg subutex. Pt was to be discharged, then complained of constipation. Started on miralax, sennokot, docusate for constipation. Had 1 'liquidy' BM
that was unwitnessed. Given milk and molasses enema. Pt developed phlebitis in L hand on 03/14, no signs of soft tissue pathology on XR. IV removed, rash improved. Pt continued to be constipated. Had a small BM on the morning of 03/18. Pt also
developed a productive cough. COVID negative, no acute cardiopulmonary processes on CXR. Pt hemodynamically stable, afebrile
Important imaging findings :
CXR 03/08: No acute cardiopulmonary process.
Abdomen XR 03/12: Nonobstructive bowel gas pattern. Small to moderate volume widespread colonic stool.
Abdomen XR 03/13: Moderate fecal material in the colon. Progressed. No evidence of intestinal obstruction.
CXR 03/14: Focal patchy parenchymal opacity in the medial left lower lobe, new. This most likely represents pneumonia. No evidence for associated pleural effusion.
Abdo/pelvis CT 03/14:
1. No significant acute abnormality identified in the abdomen or pelvis, as described above.
2. Bilateral lower lobe pneumonia, possibly aspiration related.
3. Moderate diffuse colonic stool burden may reflect constipation.
L Hand XR 03/14: No acute fracture or dislocation. Joint spaces are well-maintained. Soft tissues are grossly unremarkable.
Abdomen XR 03/17: Nonobstructive bowel gas pattern.
CXR 03/18: No acute cardiopulmonary abnormality.
Procedure findings : n/a
Discharge Plan
-
Patient Disposition: Retirement
Discharge Diagnosis/Procedures: Presumed Anne-Lima tear, possible opiate withdrawal, severe narcotic induced constipation
Condition: Good
Diet: Low Residue
Activity: No restrictions
Driving Restrictions: As prior to admission
Bathing Restrictions: None
Others Tests: Outpatient endoscopy
Instructions: GI bleed - Discharge instructions
Referrals:
[facility] [Family Provider] -
Additional Discharge Medication Instructions: Protonix twice a day for 1 month then daily after that
Prescriptions:
New
pantoprazole 40 mg Tablet,Delayed Release (Dr/Ec)
40 mg PO BID 30 Days Qty: 60 0RF
buprenorphine-naloxone [Suboxone] 12-3 mg film
1 film buccal Q24H Qty: 30 0RF
buprenorphine-naloxone [Suboxone] 8-2 mg film
1 film buccal DAILY Qty: 30 0RF
docusate sodium [Colace] 100 mg capsule
100 mg PO BID Qty: 60 0RF
senna 8.6 mg capsule
8.6 mg PO BID Qty: 60 0RF
magnesium hydroxide [Peters Milk of Magnesia] 400 mg/5 mL suspension
5 ml PO HS PRN (Reason: Constipation) Qty: 355 0RF
polyethylene glycol 3350 17 gram Powder In Packet
17 g PO BID Qty: 60 0RF
dextromethorphan-guaifenesin [Robitussin Cough-Chest Serafin DM] 5-100 mg/5 mL liquid
10 ml PO Q8H PRN (Reason: Cough) Qty: 500 0RF
Continued
clonazepam 0.5 mg Tablet
0.5 mg PO HS
Changed
clonidine HCl 0.1 mg Tablet
0.1 mg PO BID PRN (Reason: withdrawal symptoms) Qty: 0 0RF
Discontinued
pantoprazole 20 mg Tablet,Delayed Release (Dr/Ec)
20 mg PO DAILY
buprenorphine HCl 2 mg Tablet, Sublingual
4 mg SUBLINGUAL DAILY
Discharge Orders:
Discharge Patient (As Directed); Ordered 03/18/25
Ordered By: Kimmie Mandujano
Discharge Date and Time
Print Language: OCCITAN
[2025-03-18 15:16] VITALS: BP 140/77
[2025-03-18] MEDS: ZANAFLEX 2 MG PO (15:27)
[2025-03-18] MEDS: DUPHALAC/CHRONULAC PO (15:29)
== END 2025-03-18 16:34 | DRG 368 ==
LOC: 4 WEST ACU 00:43
PROVIDERS: Hospitalist; Internal Medicine; Nurse Practitioner Family; Physician Assistant; ADMITTING PHYSICIAN Hospitalist; ATTENDING PHYSICIAN Hospitalist; CONSULT PHYSICIAN Internal Medicine; CONSULT PHYSICIAN Internal Medicine Critical Care Medicine; EMERGENCY PHYSICIAN Emergency Medicine
DX: K22.6 Gastro-esophageal laceration-hemorrhage syndrome (principal); J18.9 Pneumonia, unspecified organism; J69.0 Pneumonitis due to inhalation of food and vomit; F11.23 Opioid dependence with withdrawal; I42.4 Endocardial fibroelastosis; D62 Acute posthemorrhagic anemia; T82.898A Other specified complication of vascular prosthetic devices, implants and grafts, initial encounter; K92.0 Hematemesis; Q40.0 Congenital hypertrophic pyloric stenosis; F14.10 Cocaine abuse, uncomplicated; I95.9 Hypotension, unspecified; K59.03 Drug induced constipation; F41.9 Anxiety disorder, unspecified; D72.819 Decreased white blood cell count, unspecified; T40.2X5A Adverse effect of other opioids, initial encounter; D50.9 Iron deficiency anemia, unspecified; R50.9 Fever, unspecified; Y71.1 Therapeutic (nonsurgical) and rehabilitative cardiovascular devices associated with adverse incidents; Y92.239 Unspecified place in hospital as the place of occurrence of the external cause; Y84.8 Other medical procedures as the cause of abnormal reaction of the patient, or of later complication, without mention of misadventure at the time of the procedure; R39.15 Urgency of urination; R30.0 Dysuria; E83.42 Hypomagnesemia; E87.6 Hypokalemia; Z11.52 Encounter for screening for COVID-19
CPT/HCPCS: 71046; 73130; 74018; 74019; 74177; 80048; 80053; 80306; 80307; 81003; 81015; 82077; 82248; 82607; 82728; 82962; 83540; 83550; 83605; 83735; 84100; 84443; 85014; 85018; 85025; 85027; 85610; 85730; 86850; 86900; 86901; 87040; 87070; 87077; 87086; 87186; 87389; 87502; 87811; 93005; 96365; 96366; 96375; 99285; J2916; Q9967